=== PATIENT | female | born 1940 | race Caucasian/White ===

== ENCOUNTER 2017-01-31 12:12 | Outpatient (CLI) | payer MEDICARE, OTHER | END 2017-01-31 12:13 | disposition home or self-care (01) | DX: R31.9 Hematuria, unspecified (principal) ==

== ENCOUNTER 2017-03-16 16:47 | Outpatient (CLI) | payer MEDICARE, OTHER ==
[2017-03-16 17:24] LABS: CREATININE 0.9 mg/dL (0.4-1.0)
[2017-03-16] MEDS ORDERED: IOPAMIDOL-300 100 ML VIAL IVP ONE (19:01)
[2017-03-16] MEDS ORDERED: IOPAMIDOL-300 50 ML VIAL PO ONE (19:01)
--- NOTE | 2017-03-17 11:30 | XRAY Report ---
TWO-VIEW CHEST: 03/16/2017 CLINICAL INDICATION: Dyspnea. COMPARISON: 04/12/2013 FINDINGS: Frontal and lateral views of the chest demonstrate a normal cardiac silhouette. The lungs are hyperinflated, compatible with COPD. No focal consolidation, effusion, or pneumothorax is prese nt. IMPRESSION: HYPERINFLATION, SUGGESTIVE OF COPD. NO EVIDENCE OF ACUTE CARDIOPULMONARY DISEASE. JOB #: [id number] EXT JOB #:[id number]
--- NOTE | 2017-03-17 11:35 | CT Report ---
CT ABDOMEN AND PELVIS WITH CONTRAST: 03/16/2017 CLINICAL INDICATION: Epigastric fullness and discomfort. COMPARISON: 06/28/2015 TECHNIQUE: Axial CT images of the abdomen and pelvis were obtained with 100 mL Isovue-300 intravenou sly as well as oral contrast. In accordance with CT protocol optimization, one or more of the following dose reduction techniques w ere utilized for this exam: automated exposure control, adjustment of mA and/or KV based on patient size, or use of iterative reconstructive technique. FINDINGS: Limited evaluation of the lung bases is unremarkable. Abdomen: The liver demonstrates diffuse fatty infiltration. No focal hepatic lesion or intrahepatic biliary dilatation is present. The gallbladder is nondilated. The spleen, pancreas, kidneys, and a drenal glands are unremarkable. No bowel dilatation, free gas, or free fluid is present. No abdomin al adenopathy is present. Pelvis: The pelvic organs appear unremarkable. No pelvic adenopathy or free fluid is present. A fe w scattered sigmoid diverticula are noted, without CT evidence of diverticulitis. The appendix is se en in the right lower quadrant, and is normal in caliber. Osseous structures demonstrate degenerative changes. IMPRESSION: FATTY INFILTRATION OF THE LIVER. OTHERWISE, NORMAL CT OF THE ABDOMEN AND PELVIS WITH CO NTRAST. JOB #: [id number] EXT JOB #:[id number]
== END 2017-03-16 16:48 | disposition home or self-care (01) ==
LOC: DI 16:47
PROVIDERS: ATTEND Physician Assistant Medical
DX: K76.0 Fatty (change of) liver, not elsewhere classified (principal); R91.8 Other nonspecific abnormal finding of lung field
CPT/HCPCS: 36415; 71020; 74177; 82565; Q9967

== ENCOUNTER 2017-05-02 15:49 | Emergency (ER) | payer MEDICARE, OTHER ==
[2017-05-02 15:58] VITALS: BP 177/92
--- NOTE | 2017-05-02 16:46 | CT Preliminary Report ---
Exam: CT Head W/O IMPRESSION: Generalized age-related cortical atrophic changes without evidence of acute intracranial abnormality. [facility] SITE ID: [id number]
--- NOTE | 2017-05-02 16:49 | CT Report ---
EXAM: CT HEAD EXAM DATE: 05/02/2017 04:33 PM. CLINICAL HISTORY: Left forehead contusion dizziness. COMPARISON: CT head 12/24/2012 TECHNIQUE: Multiaxial CT images were obtained from the foramen magnum to the vertex. IV contrast: Non e. Reformats: Coronal. In accordance with CT protocol optimization, one or more of the following dose reduction techniques w ere utilized for this exam: automated exposure control, adjustment of mA and/or KV based on patient s ize, or use of iterative reconstructive technique. FINDINGS: Parenchyma: No intraparenchymal hemorrhage. No evidence of mass, midline shift, or CT findings of acu te infarction. Fong-white differentiation is distinct. Extraaxial Spaces: Normal for age. No subdural or epidural collections identified. Ventricles: The ventricles and cortical sulci are enlarged, consistent with age-related tissue loss. Sinuses: Imaged paranasal sinuses, orbits, and mastoids show no significant abnormality. Bones: No evidence of fracture or calvarial defect. Other: Diffuse chronic microangiopathic white matter changes are evident. Atherosclerosis of the intr acranial arteries. IMPRESSION: Generalized age-related cortical atrophic changes without evidence of acute intracranial abnormality. [facility] Referring Provider Line: [phone] SITE ID: [id number]
--- NOTE | 2017-05-02 16:53 | XRAY Preliminary Report ---
Exam: XR Chest 2 View PA/LAT IMPRESSION: No acute intrathoracic plain film abnormality. [facility] SITE ID: [id number]
--- NOTE | 2017-05-02 16:55 | XRAY Report ---
EXAM: CHEST RADIOGRAPHY EXAM DATE: 05/02/2017 04:40 PM. CLINICAL HISTORY: Left chest contusion . COMPARISON: 03/16/2017. TECHNIQUE: 2 views. FINDINGS: Lungs/Pleura: No focal opacities evident. No pleural effusion. No pneumothorax. Normal volumes. Mediastinum: Normal heart size. There is thoracic aortic tortuosity. Other: None. IMPRESSION: No acute intrathoracic plain film abnormality. [facility] Referring Provider Line: [phone] SITE ID: [id number]
--- NOTE | 2017-05-02 17:09 | ED Physician Documentation ---
PD HPI Fall - Stated complaint Stated Complaint: GLF - Chief complaint Chief Complaint: Neuro - History obtained from History obtained from: Patient - History of Present Illness Mechanism of injury: Tripped Fall distance: Standing position Where injury occurred: Home Timing - onset: How many days ago (4) Injury(ies) location: Head, Chest, Left Lower Extremity Quality of pain: Pain, Throbbing, Dull Associated symptoms: No: LOC, AMS, Amnesia, Seizures, Ear drainage, Nasal drainage, Neck pain, Weakness, Paresthesias, Dyspnea, Nausea / vomiting, Hematemesis, Abdominal distension Symptoms improve with: Rest Worsens with: Movement, Palpation Contributing factors: No: Anticoagulated Similar symptoms before: Has not had sx before Recently seen: Clinic (seen in the [facility] today for routine visit.) - Additional information Additional information: 76-year-old female previously well was looking at the hours on a building and tripped over a curb landing on her face and chest and left knee. She did not have loss of consciousness but she continues to have a headache a bruise above the left eye and some difficulty with balance. She has not had nausea or vomiting she has not had visual changes.Today she was in the [facility] office getting her examination and her retail management trainee asked her to come to the emergency department to be evaluated for this head injury and chest injury. The patient states that she does not feel right she has difficulty concentrating and feels off balance when she moves her head quickly. She has some pain to the left anterior chest wall without cough or congestion she also has some mild pain to the left knee but she is able to walk without difficulty and has no feeling of instability. Review of Systems Constitutional: denies: Fever Eyes: denies: Decreased vision Ears: denies: Ear pain Nose: denies: Congestion Throat: denies: Sore throat Cardiac: denies: Chest pain / pressure, Palpitations Respiratory: denies: Dyspnea, Cough GI: denies: Abdominal Pain, Nausea, Vomiting, Constipation, Diarrhea : denies: Dysuria, Frequency Skin: denies: Rash Musculoskeletal: reports: Extremity pain. denies: Neck pain, Back pain, Pain with weight bearing PD PAST MEDICAL HISTORY - Past Medical History Cardiovascular: Hypertension Respiratory: None GI: Colon polyps : Incontinence, Other HEENT: Chronic hearing loss Psych: Anxiety Musculoskeletal: Osteoporosis - Past Surgical History Past Surgical History: Yes General: Colonoscopy /[facility]: Other HEENT: Tonsil/Adenoidectomy - Present Medications Home Medications: Ambulatory Orders Medication Instructions Recorded Confirmed Medical Marijuana 10 mg PO PRN PRN 06/28/15 05/02/17 Losartan Potassium 25 mg PO DAILY 12/30/15 05/02/17 busPIRone [Buspar] 5 mg PO BID 09/13/16 05/02/17 - Allergies Allergies/Adverse Reactions: Allergies Allergy/AdvReac Type Severity Reaction Status Date / Time No Known Drug Allergies Allergy Verified 05/02/17 15:58 - Social History Does the pt smoke?: No Smoking Status: Never smoker Does the pt drink ETOH?: No Does the pt have substance abuse?: No - Immunizations Immunizations are current?: Yes Immunizations: TDAP >10years/unknown - POLST Patient has POLST: No PD ED PE NORMAL - Vitals Vital signs reviewed: Yes (Hypertensive) - General General: Alert and oriented X 3, No acute distress, Well developed/nourished - HEENT HEENT: Atraumatic, PERRL - Neck Neck: Supple, no meningeal sign - Cardiac Cardiac: RRR, No murmur - Respiratory Respiratory: No respiratory distress, Clear bilaterally, Other (There is point tenderness to the lower left anterolateral chest wall. There is no tenderness under the ribs on the abdomen.) - Abdomen Abdomen: Soft, Non tender - Back Back: No CVA TTP, No spinal TTP - Derm Derm: Normal color, Warm and dry, No rash - Extremities Extremities: No deformity, Other (On examination of the left knee the patient has some mild general tenderness there is stability of the medial and lateral collateral ligaments and the distal neurovascular components are intact. The knee runs were range of motion easily.) - Neuro Neuro: Alert and oriented X 3, covering machine operator 2-12 intact, No motor deficit, No sensory deficit, Normal speech - Psych Psych: Normal mood, Normal affect Results - Vitals Vitals: Vital Signs - 24 hr 05/02/17 15:56 Temperature 36.1 C L Heart Rate 69 Respiratory 18 Rate Blood Pressure 177/92 H O2 Saturation 98 Oxygen O2 Source Room air - Rads (name of study) CT head without Radiology: Prelim report reviewed (Impression: Generalized age-related cortical atrophic changes without evidence of acute intracranial abnormality.), EMP read indepedently, See rad report 2 view chest Radiology: Prelim report reviewed (Impression: No acute intrathoracic plain film abnormality.), EMP read indepedently, See rad report PD MEDICAL DECISION MAKING - ED course Complexity details: reviewed results, re-evaluated patient, considered differential, d/w patient ED course: 76-year-old female with a history of hypertension and anxiety and depression has had a fall and has had a concussion she still has postconcussive syndrome consisting of headache difficulty concentrating and being off balance. CT of the head was negative she has been counseled that she may have postconcussive syndrome for some time and to avoid situations where she may injure herself again including bending and stooping that she is getting dizzy when she does this now.She has been counseled that she may have symptoms for 2-3 weeks and that she may have some increased pain on her chest wall over the next 1-2 days. Departure - Departure Disposition: 01 Home, Self Care Clinical Impression: Concussion Qualifiers: Encounter type: initial encounter Loss of consciousness presence/duration: without LOC Qualified Code(s): S06.0X0A - Concussion without loss of consciousness, initial encounter Chest wall contusion Qualifiers: Encounter type: initial encounter Laterality: left Qualified Code(s): S20.212A - Contusion of left front wall of thorax, initial encounter Knee contusion Qualifiers: Encounter type: initial encounter Laterality: left Qualified Code(s): S80.02XA - Contusion of left knee, initial encounter Condition: Stable Instructions: ED Contusion Vs Minor Fx Rib, ED Sprain Knee, ED Concussion Follow-Up: Isabell Anne PA-C [Primary Care Provider] -
== END 2017-05-02 17:32 | disposition home or self-care (01) ==
LOC: ED 15:49
DX: S06.0X0A Concussion without loss of consciousness, initial encounter (principal); S20.212A Contusion of left front wall of thorax, initial encounter; S80.02XA Contusion of left knee, initial encounter; S00.83XA Contusion of other part of head, initial encounter; W01.0XXA Fall on same level from slipping, tripping and stumbling without subsequent striking against object, initial encounter; Y92.480 Sidewalk as the place of occurrence of the external cause; I10 Essential (primary) hypertension
CPT/HCPCS: 70450; 71020; 99283; 99284

== ENCOUNTER 2017-05-04 16:50 | Outpatient (CLI) | payer MEDICARE, OTHER ==
--- NOTE | 2017-05-04 17:29 | XRAY Preliminary Report ---
Exam: XR Chest 2 View PA/LAT IMPRESSION: Normal 2-view chest radiography. [facility] SITE ID: [id number]
--- NOTE | 2017-05-04 17:43 | XRAY Report ---
EXAM: CHEST RADIOGRAPHY EXAM DATE: 05/04/2017 05:11 PM. CLINICAL HISTORY: Wheeze, left chest pain x 2 days, fall, left chest contusion. COMPARISON: 05/02/2017. TECHNIQUE: 2 views. FINDINGS: Lungs/Pleura: No focal opacities evident. No pleural effusion. No pneumothorax. Normal volumes. Mediastinum: Heart and mediastinal contours are unremarkable. Other: None. IMPRESSION: Normal 2-view chest radiography. [facility] Referring Provider Line: [phone] SITE ID: [id number]
== END 2017-05-04 16:51 | disposition home or self-care (01) ==
LOC: DI 16:50
PROVIDERS: ATTEND Physician Assistant Medical
DX: R07.89 Other chest pain (principal); S20.219A Contusion of unspecified front wall of thorax, initial encounter
CPT/HCPCS: 71020

== ENCOUNTER 2017-11-03 15:23 | Outpatient (CLI) | payer MEDICARE, OTHER ==
[2017-11-03 15:52] LABS: BASOPHILS # (AUTO) 0.1 10^3/uL (0.0-0.1); BASOPHILS % (AUTO) 1.4 %; EOSINOPHILS # (AUTO) 0.2 10^3/uL (0.0-0.7); EOSINOPHILS % (AUTO) 2.1 %; HGB - HEMOGLOBIN 13.6 g/dL (12.0-16.0); LYMPHOCYTES % (AUTO) 28.6 %; MEAN CORPUSCULAR HEMOGLOBIN 29.1 pg (27.0-31.0); MEAN CORPUSCULAR HGB CONC 33.6 g/dL (32.0-36.0); MEAN CORPUSCULAR VOLUME 86.6 fL (81.0-99.0); MEAN PLATELET VOLUME 7.5 fL (7.9-10.8); MONOCYTES # (AUTO) 0.3 10^3/uL (0.0-1.0); MONOCYTES % (AUTO) 4.7 %; NEUTROPHILS # (AUTO) 4.5 10^3/uL (1.5-6.6); NEUTROPHILS % (AUTO) 63.2 %; PLT - PLATELET COUNT 247 10^3/uL (130-450); RED BLOOD COUNT 4.69 10^6/uL (4.20-5.40); RED CELL DISTRIBUTION WIDTH 13.2 % (12.0-15.0); WHITE BLOOD COUNT 7.1 x10^3/uL (4.8-10.8)
[2017-11-03 16:12] LABS: ALBUMIN 3.7 g/dL (3.2-5.5); ALBUMIN/GLOBULIN RATIO 1.1 (1.0-2.2); ALKALINE PHOSPHATASE 65 IU/L (42-121); ALT ALANINE AMINOTRANSFERASE 36 IU/L (10-60); AST ASPARTATE AMINOTRANSFERASE 27 IU/L (10-42); BILIRUBIN,TOTAL 0.7 mg/dL (0.2-1.0); BUN - BLOOD UREA NITROGEN 23 mg/dL (6-20); CALCIUM 9.4 mg/dL (8.5-10.3); CARBON DIOXIDE - CO2 26 mmol/L (21-32); CHLORIDE 102 mmol/L (101-111); CHOL/HDL RATIO 4.3 (<4.4); CHOLESTEROL 210 mg/dL; CREATININE 0.9 mg/dL (0.4-1.0); GFR - MDRD 61 (>89); GLUCOSE 92 mg/dL (70-100); HDL CHOLESTEROL 49 mg/dL; LDL CHOLESTEROL,CALCULATED 147 mg/dL; SODIUM 139 mmol/L (135-145); VLDL CHOLESTEROL 14 mg/dL
== END 2017-11-03 15:24 | disposition home or self-care (01) ==
LOC: LAB 15:23
PROVIDERS: ATTEND Physician Assistant Medical
DX: M81.0 Age-related osteoporosis without current pathological fracture (principal); Z79.899 Other long term (current) drug therapy; I10 Essential (primary) hypertension; F41.8 Other specified anxiety disorders; E78.5 Hyperlipidemia, unspecified
CPT/HCPCS: 36415; 80053; 80061; 82306; 84443; 85025

== ENCOUNTER 2017-12-19 08:24 | Outpatient (CLI) | payer MEDICARE, OTHER ==
[~2017-12-19 08:24] MED LIST: GADOBUTROL 7.5 MMOL/7.5 ML VIAL ONE
[2017-12-19 08:41] LABS: CREATININE 0.9 mg/dL (0.4-1.0)
[2017-12-19] MEDS ORDERED: GADOBUTROL 7.5 MMOL/7.5 ML VIAL IVP ONE (10:33)
--- NOTE | 2017-12-19 12:54 | MRI Report ---
EXAM: MRI BRAIN WITHOUT AND WITH CONTRAST EXAM DATE: 12/19/2017 10:47 AM. CLINICAL HISTORY: 77-year-old woman with memory loss and tinnitus. COMPARISON: MRI on 03/19/2007. TECHNIQUE: Multiplanar, multisequence T1-weighted and fluid-sensitive MR sequences of the brain were performed. Sequences optimized for routine evaluation. Other: High-resolution excess images were acqu ired through the internal auditory canals. IV Contrast: 6.5 cc Gadavist. FINDINGS: Parenchyma: No evidence of acute infarct on diffusion weighted sequence. Lot parenchyma demonstrates mild to moderate burden of FLAIR hyperintensities in the deep cerebral and periventricular white cierra er, progressed compared to the 2006 exam but most consistent with sequelae of chronic small vessel is chemic disease, a common finding in this age group. No abnormal enhancement. Pituitary: Unremarkable. Ventricles and Extra-axial Spaces: Ventricles are symmetric and normal in size for age. Extra-axial s paces are unremarkable. No abnormal enhancement. Internal Auditory Canals: Patent without mass lesion or abnormal enhancement bilaterally. Cochleas an d vestibular apparatuses demonstrate normal fluid signal intensity without abnormal enhancement. Orbits: Unremarkable. Sinuses: Paranasal sinuses and mastoid air cells are clear. Major Vascular Flow Voids: Intact. Dural Venous Sinuses and Major Central Veins: Patent on post-contrast images. No evidence of jugular diverticulum or high riding jugular bulb. IMPRESSION: 1. No acute intracranial abnormality. Specifically, no evidence of acute infarct, hemorrhage, or mass lesion. 2. Mild to moderate white matter changes, regressed compared to the 03/19/2007 MRI but most consisten t with sequelae of chronic small vessel ischemic disease, a common finding in this age group. [facility] Referring Provider Line: [phone] SITE ID: [id number]
--- NOTE | 2017-12-20 16:03 | DEXA Report ---
DEXA: 12/19/2017 CLINICAL INDICATION: Osteoporosis. TECHNIQUE: Dual energy x-ray absorptiometry (DXA) was performed on a [employer] system. Regions measured are the AP spine, femoral neck, and, if needed, forearm. COMPARISON: None. In accordance with the International Society for Clinical Densitometry (ISCD) guidelines, data from previous exams may be reanalyzed using current recommendations and techniques. This is done to allow a more accurate basis for comparison with the current study. FINDINGS: The data for the lumbar spine is as follows: REGION BMD (g/cm/cm) T-SCORE Z-SCORE L1 0.783 -2.9 -1.1 L2 0.753 -3.7 -1.9 L3 0.885 -2.6 -0.9 L4 0.876 -2.7 -0.9 TOTAL 0.831 -2.9 -1.1 NOTE: All evaluable vertebrae are used for classification. The data for the hip is as follows: REGION BMD (g/cm/cm) T-SCORE Z-SCORE Neck 0.706 -2.4 -0.4 TOTAL 0.686 -2.6 -0.7 NOTE: The femoral neck or total proximal femur, whichever is lowest, is used for classification. IMPRESSION: THE WHO CLASSIFICATION BASED ON THE INTERNATIONAL REFERENCE STANDARD IS OSTEOPOROSIS. THE FRACTURE RISK IS HIGH. RECOMMENDATION: Patients with diagnosis of osteoporosis or osteopenia should have regular bone mineral density assessment. For those eligible for Medicare, routine testing is allowed once every 2 years. Testing frequency can be increased for patients who have rapidly progressing disease or for those who are receiving medical therapy to restore bone mass. COMMENT: World Health Organization (WHO) definitions for osteoporosis and osteopenia: NORMAL BMD: T-score at 1.0 or higher, fracture risk is low. OSTEOPENIA BMD: T-score between 1.0 and -2.5, fracture risk is increased. OSTEOPOROSIS BMD: T-score at 2.5 or lower, fracture risk high. National Osteoporosis Foundation recommends: 1. Obtain adequate dietary calcium (at least 1200 mg per day) and vitamin D (400 -800 international units per day). 2. Participate, as appropriate, in regular weightbearing and muscle- strengthening exercise. 3. Avoid tobacco use and reduce alcohol and caffeine intake. 4. For more detailed information see the website at www.NOF.org. TD: 12/19/2017 17:29 [place]
== END 2017-12-19 08:25 | disposition home or self-care (01) ==
LOC: LAB 08:24
PROVIDERS: ATTEND Physician Assistant Medical
DX: Z79.899 Other long term (current) drug therapy (principal); M81.0 Age-related osteoporosis without current pathological fracture; H93.19 Tinnitus, unspecified ear; R41.3 Other amnesia
CPT/HCPCS: 36415; 70553; 77080; 82565; 84520; A9585

== ENCOUNTER 2017-12-19 08:30 | Outpatient (CLI) | payer MEDICARE, OTHER ==
--- NOTE | 2017-12-20 13:39 | Mammography Report ---
DIGITAL SCREENING MAMMOGRAM: 12/19/2017 CLINICAL INDICATION: A 77-year-old with history of late childbearing, personal history of benign left breast biopsies, family history of breast cancer, for screening. COMPARISON: 08/2015, 05/2014, 02/2013, 01/2012, 09/2010. TECHNIQUE: Routine CC and MLO projections were obtained of the breasts. FINDINGS: The breasts again demonstrate heterogeneously dense fibroglandular parenchyma bilaterally. Postoperative changes in the left breast are stable. Punctate, typically benign calcifications are present. No suspicious masses, clustered microcalcifications, or regions of architectural distortion are identified. IMPRESSION: BENIGN FINDINGS. RECOMMENDATION: ROUTINE ANNUAL SCREENING UNLESS OTHERWISE CLINICALLY INDICATED. BIRADS CATEGORY 2-BENIGN FINDINGS. STANDARD QUALIFYING STATEMENTS: 1. This examination was reviewed with the aid of Computer-Aided Detection (CAD). 2. A negative or benign imaging report should not delay biopsy if clinically suspicious findings are present. Consider surgical consultation if warranted. More than 5% of cancers are not identified by imaging. 3. Dense breasts may obscure an underlying neoplasm. TD: 12/20/2017 13:37
== END 2017-12-19 08:31 | disposition home or self-care (01) ==
LOC: DI 08:30
PROVIDERS: ATTEND Physician Assistant Medical
DX: Z12.31 Encounter for screening mammogram for malignant neoplasm of breast (principal); Z80.3 Family history of malignant neoplasm of breast
CPT/HCPCS: 77067

== ENCOUNTER 2018-08-23 19:14 | Outpatient (CLI) | payer MEDICARE, OTHER ==
--- NOTE | 2018-08-25 22:18 | XRAY Report ---
Reason: LUMBAR RADICULOPATHY, RIGHT Procedure Date: 08/23/2018 Accession Number: [id number] / [id number] Procedure: XR - Lumbar Spine Complete CPT Code: FULL RESULT: EXAM: LUMBOSACRAL SPINE RADIOGRAPHY EXAM DATE: 08/23/2018 07:44 PM. CLINICAL HISTORY: Lumbar radiculopathy, right. COMPARISONS: XR LUMBOSACRAL SPINE 4 VIEWS 03/06/2007 11:05 AM. TECHNIQUE: AP, lateral, bilateral oblique, lumbosacral views. FINDINGS: Alignment: 3 mm of L1 on L2 retrolisthesis and 5 mm of L4 on L5 anterolisthesis likely degenerative in origin. Gentle convex to the left curvature of the mid lumbar spine. Bones: Five [id number] lumbar vertebral bodies are present. Osteopenic patient. No fracture or bone lesions. Disks: Multilevel degenerative disk disease most severe at L4-L5. Facets: Multilevel facet arthropathy most severe at L5-S1 and L4-L5. Sacroiliac Joints: Bilateral right greater than left SI joint sclerosis is noted. Bilateral hips: Moderate left and mild to moderate right hip joint space narrowing. Normal alignment. Soft Tissues: Normal. The visualized bowel gas pattern is normal. IMPRESSION: 1. No fracture. 2. Multilevel degenerative disk and facet arthropathy. See above. 3. Bilateral SI joint and hip arthritis. See above. [facility]
== END 2018-08-23 19:15 | disposition home or self-care (01) ==
LOC: DI 19:14
PROVIDERS: ATTEND Physician Assistant Medical
DX: M51.16 Intervertebral disc disorders with radiculopathy, lumbar region (principal); M46.98 Unspecified inflammatory spondylopathy, sacral and sacrococcygeal region; M16.0 Bilateral primary osteoarthritis of hip
CPT/HCPCS: 72110

== ENCOUNTER 2018-09-25 10:25 | Outpatient (CLI) | payer MEDICARE, OTHER ==
[2018-09-25 10:48] LABS: BASOPHILS # (AUTO) 0.1 10^3/uL (0.0-0.1); BASOPHILS % (AUTO) 1.2 %; EOSINOPHILS # (AUTO) 0.2 10^3/uL (0.0-0.7); EOSINOPHILS % (AUTO) 2.7 %; HGB - HEMOGLOBIN 14.4 g/dL (12.0-16.0); LYMPHOCYTES # (AUTO) 1.9 10^3/uL (1.5-3.5); LYMPHOCYTES % (AUTO) 33.2 %; MEAN CORPUSCULAR HEMOGLOBIN 29.8 pg (27.0-31.0); MEAN CORPUSCULAR HGB CONC 34.2 g/dL (32.0-36.0); MEAN CORPUSCULAR VOLUME 87.2 fL (81.0-99.0); MEAN PLATELET VOLUME 7.3 fL (7.9-10.8); MONOCYTES # (AUTO) 0.4 10^3/uL (0.0-1.0); NEUTROPHILS # (AUTO) 3.2 10^3/uL (1.5-6.6); NEUTROPHILS % (AUTO) 55.9 %; PLT - PLATELET COUNT 254 10^3/uL (130-450); RED BLOOD COUNT 4.83 10^6/uL (4.20-5.40); RED CELL DISTRIBUTION WIDTH 13.5 % (12.0-15.0); WHITE BLOOD COUNT 5.7 x10^3/uL (4.8-10.8)
[2018-09-25 11:03] LABS: ALBUMIN/GLOBULIN RATIO 1.3 (1.0-2.2); BILIRUBIN,TOTAL 0.7 mg/dL (0.2-1.0); CREATININE 0.8 mg/dL (0.4-1.0); TOTAL PROTEIN 7.1 g/dL (6.7-8.2)
== END 2018-09-25 10:26 | disposition home or self-care (01) ==
LOC: LAB 10:25
PROVIDERS: ATTEND Internal Medicine
DX: R07.9 Chest pain, unspecified (principal)
CPT/HCPCS: 36415; 80053; 84484; 85025

== ENCOUNTER 2018-11-08 11:47 | Outpatient (CLI) | payer MEDICARE, OTHER ==
[2018-11-08 12:44] LABS: CHOLESTEROL 203 mg/dL; HDL CHOLESTEROL 41 mg/dL; LDL CHOLESTEROL,CALCULATED 141 mg/dL; LDL/HDL RATIO 3.4 (<4.4); VLDL CHOLESTEROL 21 mg/dL
== END 2018-11-08 11:48 | disposition home or self-care (01) ==
LOC: LAB 11:47
PROVIDERS: ATTEND Physician Assistant Medical
DX: M81.0 Age-related osteoporosis without current pathological fracture (principal); Z79.899 Other long term (current) drug therapy; E78.2 Mixed hyperlipidemia; I10 Essential (primary) hypertension
CPT/HCPCS: 36415; 80061; 82306; 83721; 84443

== ENCOUNTER 2018-11-14 08:00 | Outpatient (CLI) | payer MEDICARE, OTHER ==
[2018-11-14 17:49] LABS: BILIRUBIN,URINE NEGATIVE (NEGATIVE); GLUCOSE, URINE (UA) NEGATIVE (NEGATIVE); KETONES,URINE (UA) NEGATIVE (NEGATIVE); LEUKOCYTE ESTERASE, URINE SMALL (NEGATIVE); NITRITE,URINE NEGATIVE (NEGATIVE); OCCULT BLOOD,URINE NEGATIVE (NEGATIVE); PH,URINE 5.5 PH (5.0-7.5); PROTEIN,URINE NEGATIVE (NEGATIVE); UROBILINOGEN,URINE 0.2 (NORMAL) E.U./dL (NORMAL)
[2018-11-14 17:50] LABS: CLARITY,URINE CLEAR (CLEAR)
[2018-11-14 18:03] LABS: BACTERIA,URINE None Seen /HPF (None Seen); RBC,URINE 0-5 /HPF (0-5); SQUAMOUS EPITHELIAL CELL,UR MOD Squamous (<= Few)
== END 2018-11-14 23:59 | disposition home or self-care (01) ==
LOC: LAB.R 08:00
PROVIDERS: ATTEND Physician Assistant Medical
DX: N39.0 Urinary tract infection, site not specified (principal)
CPT/HCPCS: 81001; 81003; 87086

== ENCOUNTER 2019-08-30 14:08 | Outpatient (CLI) | payer MEDICARE, OTHER ==
[2019-08-30 15:50] LABS: ALBUMIN 3.8 g/dL (3.2-5.5); ALBUMIN/GLOBULIN RATIO 1.1 (1.0-2.2); BILIRUBIN,TOTAL 0.7 mg/dL (0.2-1.0); CALCIUM 9.3 mg/dL (8.5-10.3); CREATININE 0.9 mg/dL (0.4-1.0); TOTAL PROTEIN 7.2 g/dL (6.7-8.2)
--- NOTE | 2019-08-30 15:56 | Ultrasound Report ---
Reason: ANKLE JOINT PAIN RT Procedure Date: 08/30/2019 Accession Number: [id number] / [id number] Procedure: US - Duplex Ext Veins Right CPT Code: FULL RESULT: EXAM: RIGHT LOWER EXTREMITY VENOUS ULTRASOUND EXAM DATE: 08/30/2019 02:48 PM. CLINICAL HISTORY: ANKLE JOINT PAIN RT. COMPARISON: None. TECHNIQUE: Real-time sonographic vascular imaging was performed by the safety person through the lower extremity utilizing both color-flow and Doppler spectral analysis. Multiple sales training representative static images were saved for review. FINDINGS: Common Femoral Vein (CFV): Normal. CFV-GSV Junction: Normal. Profunda Femoral Vein (PFV): Normal. Femoral Vein (FV) Prox: Normal. Femoral Vein (FV) Mid: Normal. Femoral Vein (FV) Dist: Normal. Popliteal Vein: Normal. Posterior Tibial Veins: Normal. Peroneal Veins: Normal. Other: None. IMPRESSION: No evidence for deep venous thrombosis. [facility]
[2019-08-30 15:57] LABS: CREATINE KINASE MB 2.6 ng/mL (0.6-6.3)
== END 2019-08-30 14:09 | disposition home or self-care (01) ==
LOC: LAB 14:08
PROVIDERS: ATTEND Nurse Practitioner
DX: I49.9 Cardiac arrhythmia, unspecified (principal); I10 Essential (primary) hypertension; M25.571 Pain in right ankle and joints of right foot
CPT/HCPCS: 36415; 80053; 82553; 84443; 84484; 85379

== ENCOUNTER 2020-01-16 08:38 | Outpatient (CLI) | payer MEDICARE, OTHER ==
--- NOTE | 2020-01-17 10:24 | DEXA Report ---
Reason: OSTEOPOROSIS Procedure Date: 01/16/2020 Accession Number: [id number] / [id number] Procedure: DEX - Dexa Spine and/or Hip CPT Code: Final Report FULL RESULT: EXAM: Dexa Spine and/or Hip DATE: 01/16/2020 9:10 AM CLINICAL HISTORY: OSTEOPOROSIS TECHNIQUE: Dual energy x-ray absorptiometry (DXA) was performed on a [employer] System. Regions measured are the AP Spine, femoral neck, and if needed forearm. COMPARISON: 12/19/2017. In accordance with the International Society for Clinical Densitometry (ISCD) guidelines, data from previous exams may be reanalyzed using current recommendations and techniques. This is done to allow a more accurate basis for comparison with the current study. FINDINGS: The data for the lumbar spine is as follows: BMD (g/cm/cm) T-SCORE Z-SCORE REGION L1 0.836 -2.4 -0.6 L2 0.878 -2.7 -0.9 L3 0.926 -2.3 -0.5 L4 0.895 -2.5 -0.7 TOTAL 0.887 -2.4 -0.6 NOTE: All evaluable vertebrae are used for classification The data for the hip is as follows: BMD (g/cm/cm) T-SCORE Z-SCORE REGION Neck 0.676 -2.6 -0.5 TOTAL 0.694 -2.5 -0.5 NOTE: The femoral neck or total proximal femur, whichever is lowest, is used for classification. DXA RESULTS SUMMARY: Spine SCAN DATE AGE BMD CHANGE VS CHANGE VS PREVIOUS PREVIOUS % 01[age]16/2020 [age] 0.887 0.056* 6.7* 12[age]19/2017 [age] 0[age]831 * Denotes significant change at the 95% confidence level. Denotes dissimilar scan types or analysis methods. DXA RESULTS SUMMARY: Hip SCAN DATE AGE BMD CHANGE VS CHANGE VS PREVIOUS PREVIOUS % 01[age]16/2020 [age] 0.694 0.008 1.2 12[age]19/2017 [age] 0.686 * Denotes significant change at the 95% confidence level. Denotes dissimilar scan types or analysis methods. IMPRESSION: THE WHO CLASSIFICATION BASED ON THE INTERNATIONAL REFERENCE STANDARD IS OSTEOPOROSIS. THE FRACTURE RISK IS HIGH. Please note that interval decrease in bone density in the spine is statistically significant. RECOMMENDATION: Patients with diagnosis of osteoporosis or osteopenia should have regular bone mineral density assessment. For those eligible for Medicare, routine testing is allowed once every 2 years. Testing frequency can be increased for patients who have rapidly progressing disease or for those who are receiving medical therapy to restore bone mass. COMMENT: World Health Organization (WHO) definitions for osteoporosis and osteopenia: NORMAL BMD: T-score at -1.0 or higher, fracture risk is low OSTEOPENIA BMD: T-score between -1.0 and -2.5, fracture risk is increased. OSTEOPOROSIS BMD: T-score at -2.5 or lower, fracture risk is high. National Osteoporosis Foundation recommends: 1. Obtain adequate dietary calcium (at least 1200 mg per day) and vitamin D (400-800 international units per day). 2. Participate, as appropriate, in regular weightbearing and muscle-strengthening exercise. 3. Avoid tobacco use and reduce alcohol and caffeine intake. 4. For more detailed information see the website at www.NOF.org.
== END 2020-01-16 08:39 | disposition home or self-care (01) ==
LOC: DI 08:38
PROVIDERS: ATTEND Family Medicine
DX: M81.0 Age-related osteoporosis without current pathological fracture (principal)
CPT/HCPCS: 77080

== ENCOUNTER 2020-08-15 14:18 | Outpatient (CLI) | payer MEDICARE, OTHER ==
[2020-08-15 14:48] LABS: BASOPHILS # (AUTO) 0.1 10^3/uL (0.0-0.1); BASOPHILS % (AUTO) 0.9 %; EOSINOPHILS # (AUTO) 0.1 10^3/uL (0.0-0.7); EOSINOPHILS % (AUTO) 2.5 %; HGB - HEMOGLOBIN 12.9 g/dL (12.0-16.0); LYMPHOCYTES # (AUTO) 1.9 10^3/uL (1.5-3.5); LYMPHOCYTES % (AUTO) 34.4 %; MEAN CORPUSCULAR HEMOGLOBIN 30.1 pg (27.0-31.0); MEAN CORPUSCULAR VOLUME 91.1 fL (81.0-99.0); MEAN PLATELET VOLUME 9.7 fL (7.9-10.8); MONOCYTES # (AUTO) 0.4 10^3/uL (0.0-1.0); MONOCYTES % (AUTO) 7.6 %; NEUTROPHILS % (AUTO) 54.4 %; PLT - PLATELET COUNT 214 10^3/uL (130-450); RED BLOOD COUNT 4.29 10^6/uL (4.20-5.40); RED CELL DISTRIBUTION WIDTH 12.8 % (12.0-15.0); WHITE BLOOD COUNT 5.5 x10^3/uL (4.8-10.8)
[2020-08-15 15:00] LABS: ALBUMIN 3.7 g/dL (3.2-5.5); ALBUMIN/GLOBULIN RATIO 1.2 (1.0-2.2); ALKALINE PHOSPHATASE 63 IU/L (42-121); ALT ALANINE AMINOTRANSFERASE 26 IU/L (10-60); AST ASPARTATE AMINOTRANSFERASE 23 IU/L (10-42); BILIRUBIN,TOTAL 0.6 mg/dL (0.2-1.0); BUN - BLOOD UREA NITROGEN 23 mg/dL (6-20); CALCIUM 9.3 mg/dL (8.5-10.3); CARBON DIOXIDE - CO2 26 mmol/L (21-32); CHLORIDE 108 mmol/L (101-111); CHOL/HDL RATIO 3.8 (<4.4); CHOLESTEROL 168 mg/dL; GLUCOSE 97 mg/dL (70-100); HDL CHOLESTEROL 44 mg/dL; LDL CHOLESTEROL,CALCULATED 106 mg/dL; LDL/HDL RATIO 2.4 (<4.4); SODIUM 140 mmol/L (135-145); TOTAL PROTEIN 6.7 g/dL (6.7-8.2); VLDL CHOLESTEROL 18 mg/dL
== END 2020-08-15 14:19 | disposition home or self-care (01) ==
LOC: LAB 14:18
PROVIDERS: ATTEND Family Medicine
DX: I12.9 Hypertensive chronic kidney disease with stage 1 through stage 4 chronic kidney disease, or unspecified chronic kidney disease (principal); N18.9 Chronic kidney disease, unspecified; E78.2 Mixed hyperlipidemia; F32.9 Major depressive disorder, single episode, unspecified; F41.9 Anxiety disorder, unspecified
CPT/HCPCS: 36415; 80053; 80061; 83721; 84443; 85025

== ENCOUNTER 2020-10-09 18:35 | Outpatient (CLI) | payer MEDICARE, OTHER ==
--- NOTE | 2020-10-09 22:15 | Ultrasound Report ---
PROCEDURE: Duplex Ext Veins Bilateral INDICATIONS: TYRONE MACK TECHNIQUE: Real-time imaging, as well as color and pulse Doppler interrogation, were performed of the deep veins of both legs from the inguinal ligament to the popliteal fossa. COMPARISON: Venous Doppler ultrasound right lower extremity, 08/30/2019. Venous Doppler ultrasound l eft lower extremity, 10/06/2015. FINDINGS: The deep veins are normally compressible, and free of intraluminal thrombus. Color and pu lse Doppler demonstrate normal phasic intravascular flow. There is normal augmentation response to d istal compression maneuver. There is a 1.9 x 0.2 x 0.9 cm fluid collection in the left mid nicole. IMPRESSION: 1. No DVT in the lower extremity. 2. A 1.9 x 0.2 x 0.9 cm fluid collection in the left mid nicole, probably a small seroma. Less likely, this could present a small hematoma or abscess. Recommend clinical correlation and follow-up. Reviewed by: Bonnie Perez MD on 10/09/2020 10:14 PM PST Approved by: Bonnie Perez MD on 10/09/2020 10:14 PM PST Station ID: [id number]
== END 2020-10-09 18:36 | disposition home or self-care (01) ==
LOC: DI 18:35
PROVIDERS: ATTEND Family Medicine
DX: R93.6 Abnormal findings on diagnostic imaging of limbs (principal)
CPT/HCPCS: 93970

== ENCOUNTER 2021-06-11 13:51 | Outpatient (CLI) | payer MEDICARE, OTHER | END 2021-06-11 13:52 | disposition EMS.NT | LOC: EMS 13:51 | DX: R10.9 Unspecified abdominal pain (principal) ==

== ENCOUNTER 2021-06-11 14:43 | Emergency (ER) | payer MEDICARE, OTHER ==
[2021-06-11] MEDS ORDERED: SODIUM CHLORIDE 0.9% 1,000 ML IV STA (15:03)
[2021-06-11] MEDS ORDERED: HYDROmorphone 1 MG/ML CARPUJECT IVP STA (15:03)
[2021-06-11 15:09] LABS: BASOPHILS % (AUTO) 0.5 %; EOSINOPHILS # (AUTO) 0.1 10^3/uL (0.0-0.7); EOSINOPHILS % (AUTO) 1.3 %; HCT - HEMATOCRIT 40.5 % (37.0-47.0); HGB - HEMOGLOBIN 13.5 g/dL (12.0-16.0); LYMPHOCYTES # (AUTO) 1.6 10^3/uL (1.5-3.5); LYMPHOCYTES % (AUTO) 19.9 %; MEAN CORPUSCULAR HEMOGLOBIN 29.5 pg (27.0-31.0); MEAN CORPUSCULAR HGB CONC 33.3 g/dL (32.0-36.0); MEAN CORPUSCULAR VOLUME 88.4 fL (81.0-99.0); MEAN PLATELET VOLUME 9.1 fL (7.9-10.8); MONOCYTES # (AUTO) 0.6 10^3/uL (0.0-1.0); MONOCYTES % (AUTO) 6.7 %; NEUTROPHILS # (AUTO) 5.9 10^3/uL (1.5-6.6); NEUTROPHILS % (AUTO) 71.4 %; PLT - PLATELET COUNT 243 10^3/uL (130-450); RED BLOOD COUNT 4.58 10^6/uL (4.20-5.40); RED CELL DISTRIBUTION WIDTH 12.3 % (12.0-15.0); WHITE BLOOD COUNT 8.3 x10^3/uL (4.8-10.8)
[2021-06-11] MEDS ORDERED: IOPAMIDOL-300 100 ML VIAL ONE (15:17)
[2021-06-11 15:23] LABS: ALBUMIN 3.8 g/dL (3.2-5.5); ALBUMIN/GLOBULIN RATIO 1.2 (1.0-2.2); BILIRUBIN,TOTAL 0.6 mg/dL (0.2-1.0); CALCIUM 9.2 mg/dL (8.5-10.3); CREATININE 0.7 mg/dL (0.4-1.0); POTASSIUM 3.6 mmol/L (3.5-5.0)
[2021-06-11 15:36] LABS: BILIRUBIN,URINE NEGATIVE (NEGATIVE); GLUCOSE, URINE (UA) NEGATIVE (NEGATIVE); KETONES,URINE (UA) NEGATIVE (NEGATIVE); LEUKOCYTE ESTERASE, URINE NEGATIVE (NEGATIVE); NITRITE,URINE NEGATIVE (NEGATIVE); OCCULT BLOOD,URINE NEGATIVE (NEGATIVE); PROTEIN,URINE NEGATIVE (NEGATIVE); UROBILINOGEN,URINE 0.2 (NORMAL) E.U./dL (NORMAL)
[2021-06-11 15:37] LABS: CLARITY,URINE CLEAR (CLEAR)
[2021-06-11] MEDS ORDERED: IOPAMIDOL-300 100 ML VIAL IVP ONE (16:35)
--- NOTE | 2021-06-11 16:44 | CT Report ---
PROCEDURE: Abdomen/Pelvis W INDICATIONS: RLQ abd pain CONTRAST: IV CONTRAST: Isovue 300 ml: 100 PO CONTRAST: *NO PO CONTRAST TECHNIQUE: After the administration of intravenous contrast, 5 mm thick sections acquired from the diaphragms to the symphysis. 5 mm thick coronal and sagittal reformats were acquired. For radiation dose reducti on, the following was used: automated exposure control, adjustment of mA and/or kV according to bhavya ent size. COMPARISON: 03/16/2017 FINDINGS: Image quality: Excellent. ABDOMEN: Lung bases: Lung bases are clear. Heart size is normal. Solid organs: Liver and spleen are normal in size and enhancement. Hepatic steatosis, as before. Ga llbladder is unremarkable. Biliary system is non dilated. Pancreas enhances normally. No adrenal n odules. There is a 1 cm enhancing mass involving the middle pole of the right kidney. It is exophytic . It is likely a very small, incidental renal cell carcinoma. Reference image 30/3. Kidneys otherwise demonstrate normal size and enhancement, without hydronephrosis. Peritoneum and bowel: Bowel loops demonstrate normal wall thickness and caliber. No free fluid or a ir. Moderately large right colonic fecal debris. The appendix is not identified. No secondary signs of acute appendicitis in the right lower quadrant. Nodes and vessels: No retroperitoneal or mesenteric adenopathy by size criteria. Aorta and inferior vena cava are normal in size. Miscellaneous: No ventral hernias. PELVIS: Genitourinary: Bladder wall thickness is normal. Miscellaneous: No inguinal hernias or adenopathy. Bones: No suspicious bony lesions. No vertebral body compression fractures. Lumbar degenerative ch radha. Canal stenosis at L4-L5. IMPRESSION: 1. No evidence acute abdominal process. No findings suspicious for acute appendicitis. Appendix not v isualized. 2. Moderately large right colonic fecal debris. 3. Hepatic steatosis. 4. 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 Reviewed by: Regino Howard MD on 06/11/2021 4:42 PM PDT Approved by: Regino Howard MD on 06/11/2021 4:42 PM PDT Station ID: [id number]
--- NOTE | 2021-06-11 17:18 | ED Physician Documentation ---
History of Present Illness - Stated complaint Stated Complaint: R SIDE PX - Chief complaint Chief Complaint: Abd Pain - Additonal information Additional information: 80-year-old female presents emergency department for evaluation of acute onset right-sided abdominal pain. She began to feel that intermittently this week but this afternoon it dropped her suddenly to her knees. She reports feeling generally bloated over the last few months and not very well feeling. She is scheduled to have a colonoscopy on Monday upcoming. There have been no fevers or dysuria. No urinary urgency or frequency. She denies any past surgical history. Review of Systems Constitutional: reports: Fatigue. denies: Fever, Chills Eyes: reports: Reviewed and negative Ears: reports: Reviewed and negative Throat: reports: Reviewed and negative Cardiac: reports: Reviewed and negative Respiratory: reports: Reviewed and negative GI: reports: Abdominal Pain, Nausea, Other (Bloating). 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 HEENT: Tonsil/Adenoidectomy - Present Medications Home Medications: Ambulatory Orders Medication Instructions Recorded Confirmed Medical Marijuana 10 mg PO PRN PRN 06/28/15 05/02/17 Losartan Potassium 25 mg PO DAILY 12/30/15 05/02/17 busPIRone [Buspar] 5 mg PO BID 09/13/16 05/02/17 - Allergies Allergies/Adverse Reactions: Allergies Allergy/AdvReac Type Severity Reaction Status Date / Time No Known Drug Allergies Allergy Verified 06/11/21 14:48 - Social History Does the pt smoke?: No Smoking Status: Never smoker Does the pt drink ETOH?: No Does the pt have substance abuse?: No - Immunizations Immunizations are current?: Yes Immunizations: TDAP >10years/unknown - POLST Patient has POLST: No PD ED PE EXPANDED - General General: Alert, No acute distress, Well developed/nourished - Cardiac Cardiac: Regular Rate, Murmur Present, Radial strong equal, Pedal strong equal, Cap refill < 2 sec - Respiratory Respiratory: Clear to ausultation héctor. No: Distress, Labored - Abdomen Abdomen: Normal Bowel sounds, Tender to palpation (Tenderness to the right lower quadrant and flank without guarding or rebound. Negative Kumar's negative McBurney's. Nonperitoneal) - Back Back: Normal exam - Neuro Neuro: Alert and Oriented X 3, CNII-XII intact Results - Vitals Vitals: Vital Signs - 24 hr 06/11/21 14:48 Temperature 36.7 C Heart Rate 71 Respiratory 16 Rate Blood Pressure 189/95 H O2 Saturation 98 Oxygen O2 Source Room air - Labs Labs: Laboratory Tests 06/11/21 06/11/21 06/11/21 15:03 15:03 15:11 WBC 8.3 RBC 4.58 Hgb 13.5 Hct 40.5 MCV 88.4 MCH 29.5 MCHC 33.3 RDW 12.3 Plt Count 243 MPV 9.1 Neut # (Auto) 5.9 Lymph # (Auto) 1.6 [place] # (Auto) 0.6 Eos # (Auto) 0.1 Baso # (Auto) 0.0 Absolute Nucleated RBC 0.00 Nucleated RBC % 0.0 Sodium 139 Potassium 3.6 Chloride 107 Carbon Dioxide 25 Anion Gap 7.0 BUN 20 Creatinine 0.7 Estimated GFR (MDRD) 81 L Glucose 103 H Calcium 9.2 Total Bilirubin 0.6 AST 23 ALT 27 Alkaline Phosphatase 68 Total Protein 7.0 Albumin 3.8 Globulin 3.2 Albumin/Globulin Ratio 1.2 Lipase 44 Urine Color YELLOW Urine Clarity CLEAR Urine pH 7.0 Ur Specific [place] 1.020 Urine Protein NEGATIVE Urine Glucose (UA) NEGATIVE Urine Ketones NEGATIVE Urine Occult Blood NEGATIVE Urine Nitrite NEGATIVE Urine Bilirubin NEGATIVE Urine Urobilinogen 0.2 (NORMAL) Ur Leukocyte Esterase NEGATIVE Ur Microscopic Review NOT INDICATED Urine Culture Comments NOT INDICATED - Rads (name of study) CT abd Radiology: Final report received (No evidence of acute abdominal process. No findings for acute appendicitis. Moderately large right colonic fecal debris. Hepatic steatosis. Probable tiny 1 cm incidental renal cell carcinoma of the right kidney.) PD MEDICAL DECISION MAKING - ED course Complexity details: reviewed results, d/w patient, d/w family ED course: 80-year-old female presents emergency department for evaluation of acute right- sided abdominal pain. Has been intermittent for the last week but acutely worse this afternoon. Screening labs do not show any worrisome abnormalities. CT of the abdomen shows moderate colonic fecal debris likely the cause of pain. Incidental finding of a 1 cm right renal cell carcinoma in the right kidney. These findings were discussed with the patient. She is scheduled for colonoscopy on Monday and I have encouraged her to continue this. I have also recommended close follow-up with Dr. Dsouza as she likely needs referral to a nutrition director as well as a surgeon for further evaluation and staging of the cancer. Emergent return precautions were discussed for worsening symptoms. Departure - Departure Disposition: 01 Home, Self Care Clinical Impression: Right sided abdominal pain Constipation Qualifiers: Constipation type: unspecified constipation type Qualified Code(s): K59.00 - Constipation, unspecified Renal cell carcinoma Qualifiers: Laterality: right Qualified Code(s): C64.1 - Malignant neoplasm of right kidney, except renal pelvis Condition: Stable Instructions: ED Constipation Follow-Up: Gio Vogt MD [Primary Care Provider] - Comments: Elvia you were seen in the emergency department today for right-sided abdominal pain. The CT shows that there is a fair amount of feces in the right side of your colon. This is constipation and this is the most likely cause of your bloating and abdominal pain. Unfortunately the CT did also show an incidental finding of a 1 cm right kidney carcinoma. This should be discussed with Dr. Dsouza As soon as possible. You likely require referral to a kidney doctor as well as a surgeon for further evaluation of this cancer. It does appear to have been caught early on CAT scan. I do encourage you to complete the colonoscopy that you are scheduled to have on Monday as this will be important in further evaluation of the cancer. You develop any fevers, have black or bloody stools uncontrolled vomiting suddenly severe or different abdominal pain please return to the ER for a second look.
[2021-06-11] MEDS ORDERED: ONDANSETRON 4 MG/2 ML VIAL IVP STA (17:24)
[2021-06-11 17:47] VITALS: BP 155/92
== END 2021-06-11 18:03 | disposition home or self-care (01) ==
LOC: ED 14:43
DX: K59.00 Constipation, unspecified (principal); C64.1 Malignant neoplasm of right kidney, except renal pelvis; I10 Essential (primary) hypertension
CPT/HCPCS: 36415; 74177; 80053; 81003; 83690; 85025; 96374; 96375; 99284; J1170; Q9967; 81001; 87086

== ENCOUNTER 2021-06-14 07:54 | Day surgery (SDC) | payer MEDICARE, OTHER ==
[2021-06-14] MEDS ORDERED: LACTATED RINGERS 1,000 ML IV ONE (08:36)
[2021-06-14] MEDS ORDERED: fentaNYL 250 MCG/5 ML VIAL ONE (09:17)
[2021-06-14] MEDS ORDERED: MIDAZOLAM 2 MG/2 ML VIAL ONE ×2 (09:17→09:54)
[2021-06-14] MEDS ORDERED: LACTATED RINGERS 100 ML IV ONE ×2 (10:17)
[2021-06-14 11:11] VITALS: BP 140/85
== END 2021-06-14 07:55 | disposition home or self-care (01) ==
LOC: SDS 07:54
PROVIDERS: ATTEND Surgery
PROC: 0DBL8ZZ Excision of Transverse Colon, Via Natural or Artificial Opening Endoscopic (ICD-10-PCS; 2021-06-14)
PROC: 0DBM8ZZ Excision of Descending Colon, Via Natural or Artificial Opening Endoscopic (ICD-10-PCS; principal; 2021-06-14 09:15)
DX: Z09 Encounter for follow-up examination after completed treatment for conditions other than malignant neoplasm (principal); D12.3 Benign neoplasm of transverse colon; K63.5 Polyp of colon; Z80.0 Family history of malignant neoplasm of digestive organs
CPT/HCPCS: 45385; J3010; J7120

== ENCOUNTER 2021-11-16 11:18 | Outpatient (CLI) | payer MEDICARE, OTHER ==
--- NOTE | 2021-11-17 16:06 | Mammography Report ---
BILATERAL DIGITAL SCREENING MAMMOGRAM 3D/2D: 11/16/2021 CLINICAL: Family history of breast cancer. Routine screening. Comparison is made to exams dated: 12/19/2017 mammogram, 09/02/2015 mammogram, 05/29/2014 mammogram, mammogram, and 01/05/2012 mammogram - [facility]. The tissue of both breast s is heterogeneously dense. This may lower the sensitivity of mammography. No significant masses, calcifications, or other findings are seen in either breast. There has been no significant interval change. IMPRESSION: NEGATIVE There is no mammographic evidence of malignancy. A 1 year screening mammogram is recommended. This exam was interpreted at Station ID: [id number]. NOTE: For mammograms, a report in lay terms will be sent to the patient. Approximately 15% of breast malignancies will not be visualized mammographically. In the management of a palpable breast mass, a negative mammogram must not discourage biopsy of a clinically suspicious lesion. Electronically Signed By: Urvashi partida/jose antonio:11/16/2021 16:15:08 ACR BI-RADS Category 1: Negative 3341F PARENCHYMAL PATTERN: (D) - The breast(s) demonstrate(s) heterogeneously dense fibroglandular tawanda portillo. BI-RADS CATEGORY: (1) - 1 RECOMMENDATION: (ANNUAL) - Recommend routine annual screening mammography. [id number] 1 year screening LATERALITY: (B)
== END 2021-11-16 11:19 | disposition home or self-care (01) ==
LOC: DI.N 11:18
DX: Z12.31 Encounter for screening mammogram for malignant neoplasm of breast (principal); Z80.3 Family history of malignant neoplasm of breast

== ENCOUNTER 2021-11-29 16:05 | Outpatient (CLI) | payer MEDICARE, OTHER ==
--- NOTE | 2021-11-29 16:44 | XRAY Report ---
PROCEDURE: Lumbar Spine Complete INDICATIONS: IMPARIED VIBRATION SENSATION TECHNIQUE: 5 views of the lumbar spine were acquired. COMPARISON: None. FINDINGS: Bones: 5 [id number] vertebrae are present. There is 1.1 cm anterolisthesis of L4 on L5. Degene rative endplate changes and bilateral facet arthrosis throughout lumbar spine is seen more prominent at L4-5 and L5-S1 levels.. No vertebral body compression fractures. No suspicious bony lesions. No definite pars interarticularis defect is seen on oblique views. Soft tissues: Overlying bowel gas pattern is normal. No suspicious soft tissue calcifications. IMPRESSION: 1.1 cm anterolisthesis of L4 on L5. Degenerative endplate changes throughout lumbar spin e more prominent at L4-5 and L5-S1 levels. No acute compression fracture. No definite pars defects. Reviewed by: Ty Najera MD on 11/29/2021 4:43 PM PST Approved by: Ty Najera MD on 11/29/2021 4:43 PM PST Station ID: [id number]
== END 2021-11-29 16:06 | disposition home or self-care (01) ==
LOC: DI.N 16:05
PROVIDERS: ATTEND Family Medicine
DX: R20.8 Other disturbances of skin sensation (principal); M43.16 Spondylolisthesis, lumbar region; M47.816 Spondylosis without myelopathy or radiculopathy, lumbar region; M47.817 Spondylosis without myelopathy or radiculopathy, lumbosacral region; M51.36 Other intervertebral disc degeneration, lumbar region; M51.37 Other intervertebral disc degeneration, lumbosacral region

== ENCOUNTER 2022-02-02 12:22 | Outpatient (CLI) | payer MEDICARE, OTHER ==
[2022-02-02 17:55] LABS: BASOPHILS # (AUTO) 0.1 10^3/uL (0.0-0.1); EOSINOPHILS # (AUTO) 0.1 10^3/uL (0.0-0.7); EOSINOPHILS % (AUTO) 2.4 %; HCT - HEMATOCRIT 42.2 % (37.0-47.0); HGB - HEMOGLOBIN 13.8 g/dL (12.0-16.0); LYMPHOCYTES # (AUTO) 1.8 10^3/uL (1.5-3.5); LYMPHOCYTES % (AUTO) 30.6 %; MEAN CORPUSCULAR HGB CONC 32.7 g/dL (32.0-36.0); MEAN CORPUSCULAR VOLUME 88.7 fL (81.0-99.0); MEAN PLATELET VOLUME 9.9 fL (7.9-10.8); MONOCYTES # (AUTO) 0.3 10^3/uL (0.0-1.0); MONOCYTES % (AUTO) 5.7 %; NEUTROPHILS # (AUTO) 3.6 10^3/uL (1.5-6.6); NEUTROPHILS % (AUTO) 60.1 %; PLT - PLATELET COUNT 252 10^3/uL (130-450); RED BLOOD COUNT 4.76 10^6/uL (4.20-5.40); RED CELL DISTRIBUTION WIDTH 12.7 % (12.0-15.0)
[2022-02-02 18:17] LABS: ALBUMIN 3.8 g/dL (3.2-5.5); ALBUMIN/GLOBULIN RATIO 1.1 (1.0-2.2); ALKALINE PHOSPHATASE 61 IU/L (42-121); ALT ALANINE AMINOTRANSFERASE 22 IU/L (10-60); AST ASPARTATE AMINOTRANSFERASE 20 IU/L (10-42); BILIRUBIN,TOTAL 0.5 mg/dL (0.2-1.0); BUN - BLOOD UREA NITROGEN 32 mg/dL (6-20); CALCIUM 9.9 mg/dL (8.5-10.3); CARBON DIOXIDE - CO2 27 mmol/L (21-32); CHLORIDE 104 mmol/L (101-111); CHOL/HDL RATIO 4.6 (<4.4); CHOLESTEROL 226 mg/dL; GFR - MDRD 53 (>89); GLUCOSE 96 mg/dL (70-100); HDL CHOLESTEROL 49 mg/dL; LDL CHOLESTEROL,CALCULATED 156 mg/dL; LDL/HDL RATIO 3.2 (<4.4); POTASSIUM 4.1 mmol/L (3.5-5.0); SODIUM 139 mmol/L (135-145); TOTAL PROTEIN 7.3 g/dL (6.7-8.2); TRIGLYCERIDES 105 mg/dL; VLDL CHOLESTEROL 21 mg/dL
[2022-02-02 18:31] LABS: THYROID STIMULATING HORMONE 2.86 uIU/mL (0.34-5.60)
== END 2022-02-02 12:23 | disposition home or self-care (01) ==
LOC: LAB.N 12:22
PROVIDERS: ATTEND Family Medicine
DX: R26.89 Other abnormalities of gait and mobility (principal); R20.8 Other disturbances of skin sensation; M75.01 Adhesive capsulitis of right shoulder; M81.0 Age-related osteoporosis without current pathological fracture; E78.2 Mixed hyperlipidemia; I10 Essential (primary) hypertension; F41.9 Anxiety disorder, unspecified; F32.A Depression, unspecified
CPT/HCPCS: 36415; 80053; 80061; 83721; 84443; 85025

== ENCOUNTER 2022-02-07 20:36 | Outpatient (CLI) | payer MEDICARE, OTHER ==
--- NOTE | 2022-02-08 10:35 | Ultrasound Report ---
PROCEDURE: Retroperitoneal INDICATIONS: RENAL MASS TECHNIQUE: Real-time scanning was performed of the retroperitoneal organs, with image documentation. COMPARISON: None. FINDINGS: Kidneys: Kidneys are normal in size. Right kidney measures 10.9 cm long; left kidney measures 10.9 cm long. Right renal cortical thickness is 1.6 cm; left renal cortical thickness is 1.1 cm. No naty d masses, hydronephrosis, or nephrolithiasis. Renal echotexture appears spongiform. Previously ident ified right cortical mass on CT exam of 2020 is not visualized. Bladder: Prevoid volume 393 cc, post void residual 1 41 cc. Ureteral jets are identified bilaterally. IMPRESSION: Previously identified renal mass is not visualized on ultrasound. Ultrasound or MRI follow-up is jean-paul mmended. Renal parenchyma has a spongiform appearance. Reviewed by: Celestina Soto MD on 02/08/2022 10:34 AM PDT Approved by: Celestina Soto MD on 02/08/2022 10:34 AM PDT Station ID: [id number]
== END 2022-02-07 20:37 | disposition home or self-care (01) ==
LOC: DI 20:36
PROVIDERS: ATTEND Urology
DX: N28.89 Other specified disorders of kidney and ureter (principal)

== ENCOUNTER 2022-03-25 10:55 | Outpatient (CLI) | payer MEDICARE, OTHER ==
--- NOTE | 2022-03-25 13:38 | DEXA Report ---
PROCEDURE: Dexa Spine and/or Hip INDICATIONS: POST MENOPAUSAL TECHNIQUE: Dual energy x-ray absorptiometry (DXA) was performed on a Sgnam System. Regions measur ed are the AP Spine, femoral neck, and if needed forearm. COMPARISON: 01/16/2020 and 12/24/2017. FINDINGS: Lumbar Spine: Bone Mineral Density 0.891 g/cm/cm,T score -2.4, osteopenia Left Hip: Bone Mineral Density 0.683 g/cm/cm,T score -2.6, osteoporotic Left Femoral Neck: Bone Mineral Density 0.705 g/cm/cm, T score -2.4, osteopenia (T score greater or equal to -1.0: NORMAL) (T score from -1.1 to -2.4: OSTEOPENIA) (T score less than or equal to -2.5 to: OSTEOPOROSIS) Impression: Osteoporosis. Bone mineral density has decreased 1.6% in the interval since prior exam obtained 2019. Patients with diagnosis of osteoporosis or osteopenia should have regular bone mineral density assess ment. For those eligible for Medicare, routine testing is allowed once every 2 years. Testing frequ ency can be increased for patients who have rapidly progressing disease or for those who are receivin g medical therapy to restore bone mass. Reviewed by: Akanksha Alex MD, PhD on 03/25/2022 1:36 PM PDT Approved by: Akanksha Alex MD, PhD on 03/25/2022 1:36 PM PDT Station ID: [id number]
== END 2022-03-25 10:56 | disposition home or self-care (01) ==
LOC: DI 10:55
PROVIDERS: ATTEND Family Medicine
DX: Z78.0 Asymptomatic menopausal state (principal); M81.0 Age-related osteoporosis without current pathological fracture

== ENCOUNTER 2022-04-15 15:57 | Emergency (ER) | payer MEDICARE, OTHER ==
[2022-04-15] MEDS ORDERED: SODIUM CHLORIDE 0.9% 1,000 ML IV STA (16:28)
--- NOTE | 2022-04-15 16:28 | ED Physician Documentation ---
History of Present Illness - Stated complaint Stated Complaint: C+,WEAK,DIZZY,COUGH - Chief complaint Chief Complaint: General - Additonal information Additional information: 81-year-old female was advised to come to the emergency department For evaluation of worsening fatigue, feeling lightheaded and left arm pressure that she noted this am She reports that on 05 April she woke up feeling very fatigued had generalized myalgias and a mild cough. She presented to a local walk-in clinic on 07 April where she was screened for COVID-19. She was not notified of the positive result until April 12. She states that for much of the last week if she is simply been laying in bed. No vomiting or diarrhea. She denies any chest pain. She occasionally has difficult time catching her breath though not persistently. Past medical history is most significant for hypertension. She denies any previous history of UT or stroke. Non-smoker. No history of COPD. Review of Systems Constitutional: reports: Myalgias, Fatigue Ears: reports: Reviewed and negative Nose: reports: Reviewed and negative Cardiac: reports: Other (Left arm pressure). 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 HEENT: Tonsil/Adenoidectomy - Allergies Allergies/Adverse Reactions: Allergies Allergy/AdvReac Type Severity Reaction Status Date / Time Sulfa (Sulfonamide Allergy Unknown Verified 04/15/22 16:13 Antibiotics) lisinopril AdvReac Respiratory Verified 04/15/22 16:13 - Social History Does the pt smoke?: No Smoking Status: Never smoker Does the pt drink ETOH?: No Does the pt have substance abuse?: No - Immunizations Immunizations are current?: Yes Immunizations: TDAP >10years/unknown - POLST Patient has POLST: No PD ED PE NORMAL - General General: Alert and oriented X 3, No acute distress - HEENT HEENT: Atraumatic, Ears normal, Moist mucous membranes - Neck Neck: Supple, no meningeal sign, No JVD - Cardiac Cardiac: RRR. No: No murmur - Respiratory Respiratory: No respiratory distress, Clear bilaterally - Abdomen Abdomen: Normal bowel sounds, Soft, Non tender - Back Back: No CVA TTP - Derm Derm: Warm and dry - Extremities Extremities: No deformity - Neuro Neuro: Alert and oriented X 3 Eye Opening: Spontaneous Motor: Obeys Commands Verbal: Oriented GCS Score: 15 Results - Vitals Vitals: Vital Signs - 24 hr 04/15/22 16:09 Temperature 36.7 C Heart Rate 69 Respiratory 14 Rate Blood Pressure 176/90 H O2 Saturation 96 Oxygen O2 Source Room air - EKG (time done) 1625 Rate: Rate (enter#) (69) Rhythm: NSR Intervals: RBBB QRS: Normal Ischemia: T wave inversion (New T wave inversions in the 3 through 4 which are new from the last 2014 EKG) Compare to prior EKG: Changed from prior EKG (now RBBB) Computer interpretation: Agree with computer - Labs Labs: Laboratory Tests 04/15/22 04/15/22 04/15/22 16:35 16:35 16:35 WBC 6.9 RBC 4.68 Hgb 13.6 Hct 40.8 MCV 87.2 MCH 29.1 MCHC 33.3 RDW 12.8 Plt Count 239 MPV 9.5 Neut # (Auto) 4.0 Lymph # (Auto) 2.1 [place] # (Auto) 0.5 Eos # (Auto) 0.2 Baso # (Auto) 0.0 Absolute Nucleated RBC 0.00 Nucleated RBC % 0.0 Sodium 137 Potassium 3.8 Chloride 105 Carbon Dioxide 27 Anion Gap 5.0 L BUN 31 H Creatinine 1.0 Estimated GFR (MDRD) 53 L Glucose 99 Calcium 9.0 Total Bilirubin 0.7 AST 17 ALT 25 Alkaline Phosphatase 53 Troponin I High Sens 6.1 B-Natriuretic Peptide Total Protein 6.7 Albumin 3.3 Globulin 3.4 Albumin/Globulin Ratio 1.0 Lipase 83 H 04/15/22 16:35 WBC RBC Hgb Hct MCV MCH MCHC RDW Plt Count MPV Neut # (Auto) Lymph # (Auto) [place] # (Auto) Eos # (Auto) Baso # (Auto) Absolute Nucleated RBC Nucleated RBC % Sodium Potassium Chloride Carbon Dioxide Anion Gap BUN Creatinine Estimated GFR (MDRD) Glucose Calcium Total Bilirubin AST ALT Alkaline Phosphatase Troponin I High Sens B-Natriuretic Peptide 56 Total Protein Albumin Globulin Albumin/Globulin Ratio Lipase PD MEDICAL DECISION MAKING - ED course Complexity details: reviewed results, re-evaluated patient, d/w patient, d/w reporting process consultant ([facility] Card[facility]) ED course: This is a very pleasant 81-year-old female that presents to the emergency department for evaluation of 2 to 3 days of left arm pain and pressure. This follows a recent diagnosis of COVID-19 on 07 April. She states that for much of the last 7 to 10 days she has been very fatigued and sleeping a lot. She has no focal chest pain or shortness of air. Her screening labs were most significant for a mild BUN elevation of 31 attributing to recently decreased p.o. intake. She was given a liter of fluids here in the ER. Her troponin is negative. Chest x-ray was without acute focal findings. However her EKG does show some T wave inversions in V2 through V5. As well as a new right bundle branch block. This is new from our most recent EKG in the system 2014. I did speak with the paintless dent repair technician on-call for [facility] Dr. Araiza. He was able to review the most recent EKG in their system for her. He confirms that in 2018 she did have T wave inversions in the anterior lateral leads. So these t wave changes are not new. A nuclear med stress test in 2018 was also unremarkable. However given her age the patient will be followed up in their clinic for repeat evaluation and consideration of another stress test or echo since it has been 4 years. This plan and findings were discussed with the patient and she is comfortable with current discharge home. She has remained hemodynamically stable while here in the emergency department. Departure - Departure Disposition: Home, Self Care Clinical Impression: Left arm pain Fatigue Qualifiers: Fatigue type: unspecified Qualified Code(s): R53.83 - Other fatigue Condition: Stable Record reviewed to determine appropriate education?: Yes Comments: Elvia you are seen today in the emergency department because you have been very fatigued for much of the last week after recent COVID-19 infection. Today a chest x-ray and screening labs are all essentially normal though you may be mildly dehydrated. We did give you a liter of fluids here in the ER. Your EKG today showed that you had some changes that were new from our most recent 1 in 2014. However I was able to confirm with cardiology at [facility] and the changes that we see an EKG today were present in 2018. The cardiology office of Dr. Landrum will be contacting you for follow-up in the next week or so in order to be reseen and to obtain repeat echocardiogram and stress testing. At any point you develop chest pain, chest pressure, have any fainting episodes then you should return immediately to the ER for second evaluation.
[2022-04-15 16:42] LABS: BASOPHILS % (AUTO) 0.3 %; EOSINOPHILS # (AUTO) 0.2 10^3/uL (0.0-0.7); EOSINOPHILS % (AUTO) 2.5 %; HCT - HEMATOCRIT 40.8 % (37.0-47.0); HGB - HEMOGLOBIN 13.6 g/dL (12.0-16.0); LYMPHOCYTES # (AUTO) 2.1 10^3/uL (1.5-3.5); LYMPHOCYTES % (AUTO) 29.9 %; MEAN CORPUSCULAR HEMOGLOBIN 29.1 pg (27.0-31.0); MEAN CORPUSCULAR HGB CONC 33.3 g/dL (32.0-36.0); MEAN CORPUSCULAR VOLUME 87.2 fL (81.0-99.0); MEAN PLATELET VOLUME 9.5 fL (7.9-10.8); MONOCYTES # (AUTO) 0.5 10^3/uL (0.0-1.0); MONOCYTES % (AUTO) 7.6 %; NEUTROPHILS % (AUTO) 58.4 %; PLT - PLATELET COUNT 239 10^3/uL (130-450); RED BLOOD COUNT 4.68 10^6/uL (4.20-5.40); RED CELL DISTRIBUTION WIDTH 12.8 % (12.0-15.0); WHITE BLOOD COUNT 6.9 x10^3/uL (4.8-10.8)
[2022-04-15 17:01] LABS: ALBUMIN 3.3 g/dL (3.2-5.5); BILIRUBIN,TOTAL 0.7 mg/dL (0.2-1.0); POTASSIUM 3.8 mmol/L (3.5-5.0); TOTAL PROTEIN 6.7 g/dL (6.7-8.2)
--- NOTE | 2022-04-15 17:01 | XRAY Report ---
PROCEDURE: Chest 1 View X-Ray INDICATIONS: Chest Pain TECHNIQUE: One view of the chest was acquired. COMPARISON: None. FINDINGS: Surgical changes and devices: None. Lungs and pleura: No pleural effusions or pneumothorax. Lungs are clear. No focal consolidation. Mediastinum: Mediastinal contours appear unremarkable with mild tortuosity of the thoracic aorta. H eart size is normal. Bones and chest wall: No suspicious bony lesions. Overlying soft tissues appear unremarkable. Age-a ppropriate degenerative changes of the osseous structures. IMPRESSION: Chest without acute cardiopulmonary abnormalities. No focal consolidation seen. Reviewed by: Brice Plaza MD on 04/15/2022 5:00 PM PDT Approved by: Brice Plaza MD on 04/15/2022 5:00 PM PDT Station ID: [id number]
[2022-04-15 17:50] VITALS: BP 150/80
== END 2022-04-15 17:49 | disposition home or self-care (01) ==
LOC: ED 15:57
DX: M79.602 Pain in left arm (principal); R53.83 Other fatigue; I10 Essential (primary) hypertension
CPT/HCPCS: 36415; 80053; 83690; 83880; 84484; 85025; 93005; 96360; 99282

== ENCOUNTER 2022-07-31 16:43 | Outpatient (CLI) | payer MEDICARE, OTHER ==
--- NOTE | 2022-07-31 17:43 | XRAY Report ---
PROCEDURE: Shoulder 2 View RT INDICATIONS: FROZEN RT SHOULDER TECHNIQUE: 2 views of the shoulder were acquired. COMPARISON: 12/04/2018 FINDINGS: Bones: No fractures or dislocations. No suspicious bony lesions. Visualized ribs appear intact. R elatively prominent degenerative changes are seen, with at least moderate bilateral joint space narro wing, with associated prominent osteophyte formation along the inferomedial right humeral head. Soft tissues: No suspicious soft tissue calcifications. The visualized lung demonstrates a normal a ppearance. IMPRESSION: Prominent right shoulder degenerative changes are seen. If it would be helpful for clinical management decision making, please consider a dedicated, schedule d shoulder MRI for further evaluation (assuming that there is no contraindication). Reviewed by: Olivier Nails MD on 07/31/2022 4:42 PM ELOINA Approved by: Olivier Nails MD on 07/31/2022 4:42 PM ELOINA Station ID: [id number]
== END 2022-07-31 16:44 | disposition home or self-care (01) ==
LOC: DI 16:43
PROVIDERS: ATTEND Physician Assistant
DX: M75.01 Adhesive capsulitis of right shoulder (principal); M19.011 Primary osteoarthritis, right shoulder

== ENCOUNTER 2023-02-20 10:29 | Outpatient (CLI) | payer MEDICARE, OTHER ==
[~2023-02-20 10:29] MED LIST changes: +BUPIVACAINE 0.5% PF 10 ML VIAL ONE; -GADOBUTROL 7.5 MMOL/7.5 ML VIAL ONE; +LIDOCAINE-MPF 1% 5 ML VIAL ONE; +TRIAMCINOLONE 40 MG/ML VIAL ONE; +iohexoL-240 10 ML VIAL IVP ONE
[2023-02-20] MEDS ORDERED: LIDOCAINE-MPF 1% 5 ML VIAL SUBQ ONE (11:41)
[2023-02-20] MEDS ORDERED: iohexoL-240 10 ML VIAL IVP ONE (11:42)
[2023-02-20] MEDS ORDERED: BUPIVACAINE 0.5% PF 10 ML VIAL IM ONE (11:42)
[2023-02-20] MEDS ORDERED: TRIAMCINOLONE 40 MG/ML VIAL IM ONE (11:43)
--- NOTE | 2023-02-20 17:02 | XRAY Report ---
PROCEDURE: Inj/Aspiration Major Joint INDICATIONS: DJD RIGHT SHOULDER CONTRAST: Not visible FLUORO TIME: 0.1 min TECHNIQUE: The indications, alternatives, benefits, risks, and complications of the procedure were explained to the patient. Written informed consent was obtained and placed in the chart. The patient was placed in an appropriate position on the fluoroscopy table, and a site was chosen for percutaneous access un shelly fluoroscopic guidance. Local anesthetic was administered using a 1% lidocaine solution. A hypod ermic or spinal needle was then used to access the symptomatic joint. Intra-articular location of th e needle tip was confirmed by injecting a small amount of contrast, followed by steroid administratio n. The needle was then withdrawn, and a bandage applied to the puncture site. FINDINGS: Joint injected: Right glenohumeral Medications injected: 12 mL of 40 mg/mL Kenalog and 0.5% Ropivacaine mixture. Complications: None. Patient reports pain of 9 prior to injection, 0 following injection. IMPRESSION: Successful fluoroscopically guided administration of steroid and anaesthetic solution into the right glenohumeral joint. Reviewed by: Mati Quinones on 02/20/2023 5:01 PM PDT Approved by: Mati Quinones on 02/20/2023 5:01 PM PDT Station ID: [id number]
== END 2023-02-20 10:30 | disposition home or self-care (01) ==
LOC: DI 10:29
PROVIDERS: ATTEND Orthopaedic Surgery
DX: M19.011 Primary osteoarthritis, right shoulder (principal)
CPT/HCPCS: 20610; 77002; Q9966

== ENCOUNTER 2023-03-22 23:18 | Outpatient (CLI) | payer MEDICARE, OTHER | END 2023-03-22 23:59 | disposition critical access hospital (66) | LOC: EMS 23:18 | DX: R42 Dizziness and giddiness (principal); R11.0 Nausea; I10 Essential (primary) hypertension; R00.1 Bradycardia, unspecified | CPT/HCPCS: A0425; A0429 ==

== ENCOUNTER 2023-03-23 00:18 | Emergency (ER) | payer MEDICARE, OTHER ==
[2023-03-23] MEDS ORDERED: iohexoL-300 100 ML VIAL ONE ×2 (01:18→05:58)
[2023-03-23] MEDS ORDERED: MECLIZINE 12.5 MG TABLET PO ONE (01:35)
[2023-03-23 04:27] LABS: ALBUMIN 3.4 g/dL (3.2-5.5); BILIRUBIN,TOTAL 0.5 mg/dL (0.2-1.0); CALCIUM 9.3 mg/dL (8.5-10.3); CREATININE 0.9 mg/dL (0.4-1.0); POTASSIUM 3.9 mmol/L (3.5-5.0); TOTAL PROTEIN 6.9 g/dL (6.7-8.2)
[2023-03-23 04:28] LABS: BASOPHILS # (AUTO) 0.1 10^3/uL (0.0-0.1); BASOPHILS % (AUTO) 0.9 %; EOSINOPHILS # (AUTO) 0.2 10^3/uL (0.0-0.7); EOSINOPHILS % (AUTO) 2.8 %; HCT - HEMATOCRIT 40.6 % (37.0-47.0); HGB - HEMOGLOBIN 13.3 g/dL (12.0-16.0); LYMPHOCYTES # (AUTO) 1.7 10^3/uL (1.5-3.5); LYMPHOCYTES % (AUTO) 28.5 %; MEAN CORPUSCULAR HEMOGLOBIN 29.1 pg (27.0-31.0); MEAN CORPUSCULAR HGB CONC 32.8 g/dL (32.0-36.0); MEAN CORPUSCULAR VOLUME 88.8 fL (81.0-99.0); MEAN PLATELET VOLUME 9.5 fL (7.9-10.8); MONOCYTES # (AUTO) 0.4 10^3/uL (0.0-1.0); MONOCYTES % (AUTO) 6.4 %; NEUTROPHILS # (AUTO) 3.6 10^3/uL (1.5-6.6); NEUTROPHILS % (AUTO) 61.2 %; PLT - PLATELET COUNT 245 10^3/uL (130-450); RED BLOOD COUNT 4.57 10^6/uL (4.20-5.40); RED CELL DISTRIBUTION WIDTH 12.4 % (12.0-15.0); WHITE BLOOD COUNT 5.8 x10^3/uL (4.8-10.8)
[2023-03-23] MEDS ORDERED: iohexoL-300 100 ML VIAL IVP ONE (05:55)
--- NOTE | 2023-03-23 14:23 | CT Report ---
PROCEDURE: ANGIO HEAD W/WO INDICATIONS: Vertigo CONTRAST: Omni 300 80ml TECHNIQUE: Precontrast 4.5 mm thick angled axial sections acquired from the foramen magnum to the vertex. Afte r the administration of intravenous contrast, 1 mm thick sections acquired through the [place] is. Postcontrast 4.5 mm thick sections then re-acquired from the foramen magnum to the vertex. 3-di mensional lyblbmp-dfqptxloi-jambvdownk (MIP) and/or volume rendering reformats were acquired of the c entral intracranial vasculature. For radiation dose reduction, the following was used: automated ex posure control, adjustment of mA and/or kV according to patient size. COMPARISON: CT head without, 05/02/2017. MRI present with some without, 12/19/2019 FINDINGS: Image quality: Excellent. Anterior circulation: Intracranial internal carotid arteries are normal in size and flow. Ossified p laques in cavernous segments of the internal carotid arteries bilaterally. The flow within the paired anterior cerebral arteries is normal and symmetric. The flow within the middle cerebral arteries is normal and symmetric. The anterior communicating artery is seen. No aneurysms are seen. Posterior circulation: There is atherosclerotic calcification of the distal left vertebral artery. V isualized portions of the vertebral arteries demonstrate normal caliber, and join to form a normal ap pearing basilar artery. Flow within the posterior cerebral arteries is normal and symmetric. No ane urysms are seen. CSF spaces: Ventricles are normal in size and shape. Basal cisterns are patent. No extra-axial flu id collections. Brain: No midline shift. No intracranial bleeds or masses. Fong-white matter interface appears int act. Skull and face: Calvarium and facial bones appear intact, without suspicious lesions. Sinuses: Visualized sinuses and mastoids are clear. IMPRESSION: 1. No acute intracranial abnormality. If clinical symptoms persist, consider MRI for follow-up. 2. No high-grade stenosis or occlusion in anterior or posterior circulations. No significant discrepancy with the preliminary interpretation. Reviewed by: Bonnie Perez MD on 03/23/2023 2:22 PM PDT Approved by: Bonnie Perez MD on 03/23/2023 2:22 PM PDT Station ID: [id number]
--- NOTE | 2023-03-23 14:31 | CT Report ---
PROCEDURE: ANGIO NECK W INDICATIONS: Vertigo CONTRAST: Omni 300 80ml TECHNIQUE: After the administration of intravenous contrast, 1.5 mm axial sections acquired from the aortic arch to the [place]. Coronal 3-D maximum intensity projection (MIP) and/or volume rendering ref ormats were then performed. For radiation dose reduction, the following was used: automated exposur e control, adjustment of mA and/or kV according to patient size. COMPARISON: None. FINDINGS: Image quality: Excellent. Carotid system: The great vessels demonstrate a conventional anatomy as they arise from the aortic a rch. The origins of the common carotid arteries appear patent. The common carotid arteries demonstra te normal calibers and courses. There are calcified plaques at the carotid bifurcations. The bifurca tion regions otherwise appear normal bilaterally. The internal carotid arteries demonstrate normal c aliber and course. Posterior circulation: The origins of the vertebral arteries appear patent. Calcified plaque in the distal left vertebral artery at the skull base causing 30-50% stenosis. The more superior portions of the vertebral arteries demonstrate normal course and caliber. They join to form a normal appearing basilar artery. Soft tissues: Visualized neck soft tissues demonstrate no suspicious abnormalities. The thyroid is normal in size and there are no incidental findings. Bones: No suspicious bony lesions. Moderate degenerative disc and facet disease in cervical spine. V isualized cervical spine appears normally aligned. IMPRESSION: 1. Calcified plaques at the carotid bifurcations bilaterally. No occlusion or hemodynamic significant stenosis in carotid arteries. 2. Calcified plaques in the distal left vertebral artery at the skull base causing 30-50% stenosis. No significant discrepancy with the preliminary interpretation. The estimate of stenosis included in the report of the imaging study was calculated using the NASCET method CLINICAL RECOMMENDATION STATEMENTS: In patients <35 years with an ITN detected on CT, MRI, or extrathyroidal ultrasound, the Committee re commends further evaluation with dedicated thyroid ultrasound if the nodule is "e1 cm and has no susp icious imaging features, and if the patient has normal life expectancy. In patients "e35 years with an ITN detected on CT, MRI, or extrathyroidal ultrasound, the Committee r ecommends further evaluation with dedicated thyroid ultrasound if the nodule is "e1.5 cm and has no s uspicious imaging features, and if the patient has normal life expectancy. (ACR, 2014) Reviewed by: Bonnie Perez MD on 03/23/2023 2:30 PM PDT Approved by: Bonnie Perez MD on 03/23/2023 2:30 PM PDT Station ID: [id number]
== END 2023-03-23 04:31 | disposition home or self-care (01) ==
LOC: ED 00:18
DX: R42 Dizziness and giddiness (principal); I45.10 Unspecified right bundle-branch block
CPT/HCPCS: 36415; 70496; 70498; 80053; 83690; 85025; 93005; 99283; 99284; A9270; Q9967

== ENCOUNTER 2023-04-05 17:31 | Outpatient (CLI) | payer MEDICARE, OTHER ==
--- NOTE | 2023-04-06 10:09 | MRI Report ---
PROCEDURE: BRAIN WO INDICATIONS: VERTIGO TECHNIQUE: Noncontrast axial T1 spin echo, axial T2 fast spin echo, sagittal and axial FLAIR, coronal T2 fast sp in echo, axial gradient echo, axial diffusion and ADC through the brain. COMPARISON: Brain MRI with and without contrast dated 12/22/2017. FINDINGS: Image quality: Excellent. CSF Spaces: Basal cisterns are patent. No extra-axial fluid collections. Ventricles are normal in size and shape. Brain: There is a tiny incidental right posterior fossa meningioma which was not commented on in the prior study, which measured 7 mm at that time, on post gadolinium axial image 11 of series 901. 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 Fong/white matter interface is normal. Age-related volume loss and mild to moderate small vessel ischemic change, minimally progressed. Brainstem appears normal. Diffusion-weighted images d emonstrate no acute ischemic insult. No chronic ischemic insults. Normal intravascular flow voids a re present. Skull and face: Calvarium has normal marrow signal. Orbits appear normal. Sinuses: Sinuses and mastoids are clear. IMPRESSION: 1. No acute intracranial abnormality. 2. Stable incidental tiny 7 mm right posterior fossa meningioma. 3. Age-related volume loss and mild to moderate small vessel ischemic change, minimally progressed si nce the previous study. This is an age-appropriate finding. Reviewed by: Regino Howard MD on 04/06/2023 10:07 AM PDT Approved by: Regino Howard MD on 04/06/2023 10:07 AM PDT Station ID: [id number]
== END 2023-04-05 17:32 | disposition home or self-care (01) ==
LOC: DI 17:31
PROVIDERS: ATTEND Registered Nurse
DX: R42 Dizziness and giddiness (principal); Z63.9 Problem related to primary support group, unspecified; Z63.79 Other stressful life events affecting family and household; I10 Essential (primary) hypertension; R53.83 Other fatigue; G31.89 Other specified degenerative diseases of nervous system; I67.82 Cerebral ischemia

== ENCOUNTER 2023-05-05 11:38 | Outpatient (CLI) | payer MEDICARE, OTHER ==
[2023-05-05 11:43] LABS: BILIRUBIN,URINE NEGATIVE (NEGATIVE); GLUCOSE, URINE (UA) NEGATIVE (NEGATIVE); KETONES,URINE (UA) NEGATIVE (NEGATIVE); LEUKOCYTE ESTERASE, URINE NEGATIVE (NEGATIVE); NITRITE,URINE NEGATIVE (NEGATIVE); OCCULT BLOOD,URINE NEGATIVE (NEGATIVE); PH,URINE 7.5 PH (5.0-7.5); PROTEIN,URINE NEGATIVE (NEGATIVE); UROBILINOGEN,URINE 0.2 (NORMAL) E.U./dL (NORMAL)
[2023-05-05 11:51] LABS: BACTERIA,URINE Rare /HPF (None Seen); CLARITY,URINE CLEAR (CLEAR); RBC,URINE 0-5 /HPF (0-5); SQUAMOUS EPITHELIAL CELL,UR NONE SEEN (<= Few); WBC,URINE 0-3 /HPF (0-5)
== END 2023-05-05 11:39 | disposition home or self-care (01) ==
LOC: LAB 11:38
PROVIDERS: ATTEND Urology
DX: R32 Unspecified urinary incontinence (principal)
CPT/HCPCS: 81001; 87086

== ENCOUNTER 2023-05-30 08:00 | Outpatient (CLI) | payer MEDICARE, OTHER ==
--- NOTE | 2023-05-30 15:48 | XRAY Report ---
PROCEDURE: Shoulder 3 View RT INDICATIONS: RIGHT SHOULDER PAIN TECHNIQUE: 4 views of the shoulder were acquired. COMPARISON: 08/18/2022 FINDINGS: Bones: No fractures or dislocations. No suspicious bony lesions. Visualized ribs appear intact. Severe degenerative changes of the glenohumeral joint present as before. Soft tissues: No suspicious soft tissue calcifications. IMPRESSION: No acute bony abnormality. If pain persists with conservative management, consider repeat radiographs in 10-14 days or cross-sectional imaging. Severe degenerative changes of the glenohumeral joint redemonstrated. Reviewed by: Venu Romero MD on 05/30/2023 3:39 PM PDT Approved by: Venu Romero MD on 05/30/2023 3:39 PM PDT Station ID: [id number]
== END 2023-05-30 23:59 | disposition home or self-care (01) ==
LOC: DI.WOS 08:00
PROVIDERS: ATTEND Physician Assistant Surgical
DX: M19.011 Primary osteoarthritis, right shoulder (principal)

== ENCOUNTER 2023-06-30 12:30 | Outpatient (CLI) | payer MEDICARE, OTHER ==
--- NOTE | 2023-06-30 20:23 | XRAY Report ---
PROCEDURE: Abdomen 1 View X-Ray INDICATIONS: RECTAL INCONTINENCE TECHNIQUE: One view of the abdomen acquired. COMPARISON: None. FINDINGS: Surgical changes and devices: None. Bowel: Bowel gas pattern is normal. Soft tissues: No suspicious abdominal calcifications. Visualized solid organ contours appear normal in size. Bones: No suspicious bony lesions. IMPRESSION: No acute abdominal pathology. Reviewed by: Celestina Soto MD on 06/30/2023 8:22 PM PDT Approved by: Celestina Stoo MD on 06/30/2023 8:22 PM PDT Station ID: [id number]
== END 2023-06-30 12:31 | disposition home or self-care (01) ==
LOC: DI 12:30
PROVIDERS: ATTEND Family Medicine
DX: R15.9 Full incontinence of feces (principal)

== ENCOUNTER 2023-11-30 16:00 | Outpatient (CLI) | payer MEDICARE, OTHER ==
--- NOTE | 2023-12-01 10:50 | MRI Report ---
PROCEDURE: SHOULDER WO - RT INDICATIONS: RIGHT SHOULDER STRAIN TECHNIQUE: Noncontrast oblique coronal T2 fast spin echo with fat saturation, oblique sagittal T1 spin echo and T2 fast spin echo with fat saturation, axial T1 spin echo and T2 fast spin echo with fat saturation t hrough the shoulder. COMPARISON: None. FINDINGS: Image quality: Excellent. Rotator cuff: Moderate to high-grade articular and bursal surface partial-thickness tear involving di stal supraspinatus at its insertion on humeral head is seen extending to muscular tendinous junction. Tendinosis and low-grade articular surface partial-thickness involving distal subscapularis at its i nsertion on humeral head is seen. Moderate grade partial thickness tear involving distal subscapulari s is also noted. No definite full-thickness rotator cuff tendon rupture. Moderate supraspinatus muscl e atrophy is seen on sagittal images. Bones and bursae: Severe glenohumeral joint osteoarthritic changes are seen with near complete loss o f joint space, extensive subchondral sclerosis and edema. Moderate acromioclavicular joint osteoarthr itic changes also seen with joint space narrowing at downward osteophyte formation depressing on musc ulotendinous junction of supraspinatus. No acute fracture or dislocation. Moderate to large amount of joint effusion and moderate amount of subacromial subdeltoid bursal fluid is seen. There are suggest ion of small gravel-like intra-articular loose bodies within dependent portion of glenohumeral joint space. Moderate to large amount of subcoracoid bursal fluid is also noted. Capsule and soft tissues: There is suggestion of extensive anterior labral tear from 12 to 6:00 posit ion with extensive fraying and global signal abnormality. The long head of the biceps tendinosis is s een. The rotator interval appears normal, without fibrosis. The coracohumeral ligament is normal in thickness. IMPRESSION: 1. Moderate to high-grade articular and bursal surface partial-thickness involving distal supraspinat us extending to muscular tendinous junction. Low-grade articular surface partial-thickness involving distal infraspinatus. Moderate grade intrasubstance partial thickness tear involving subscapularis. N o definite full-thickness rotator cuff tendon rupture. Moderate supraspinatus muscle atrophy. 2. Moderate to large joint effusion and subacromial subdeltoid bursal fluid and subcortical and bursa l fluid. Small gravel-like intra-articular loose bodies throughout dependent portion of the glenohume ral joint space. 3. Severe glenohumeral joint osteoarthritis and mild to moderate acromioclavicular joint osteoarthrit is. No fracture or dislocation. 4. Suggestion of extensive anterior labral tear at 12 to 6:00 position. 5. Proximal long head of biceps tendinosis. Reviewed by: Ty Najera MD on 12/01/2023 10:48 AM RUST Approved by: Ty Najera MD on 12/01/2023 10:48 AM PST Station ID: [id number]
== END 2023-11-30 16:01 | disposition home or self-care (01) ==
LOC: DI 16:00
PROVIDERS: ATTEND Emergency Medicine
DX: S46.011A Strain of muscle(s) and tendon(s) of the rotator cuff of right shoulder, initial encounter (principal); M62.511 Muscle wasting and atrophy, not elsewhere classified, right shoulder; M25.411 Effusion, right shoulder; M75.51 Bursitis of right shoulder; M24.011 Loose body in right shoulder; M19.011 Primary osteoarthritis, right shoulder; M67.813 Other specified disorders of tendon, right shoulder

== ENCOUNTER 2024-01-23 12:29 | Outpatient (CLI) | payer MEDICARE, OTHER ==
[2024-01-23 17:49] LABS: BASOPHILS % (AUTO) 0.4 %; EOSINOPHILS % (AUTO) 0.3 %; HGB - HEMOGLOBIN 13.5 g/dL (12.0-16.0); LYMPHOCYTES % (AUTO) 20.5 %; MEAN CORPUSCULAR HEMOGLOBIN 28.7 pg (27.0-31.0); MEAN CORPUSCULAR HGB CONC 32.1 g/dL (32.0-36.0); MEAN CORPUSCULAR VOLUME 89.2 fL (81.0-99.0); MEAN PLATELET VOLUME 9.9 fL (7.9-10.8); MONOCYTES # (AUTO) 0.6 10^3/uL (0.0-1.0); NEUTROPHILS # (AUTO) 7.1 10^3/uL (1.5-6.6); NEUTROPHILS % (AUTO) 72.6 %; PLT - PLATELET COUNT 250 10^3/uL (130-450); RED BLOOD COUNT 4.71 10^6/uL (4.20-5.40); RED CELL DISTRIBUTION WIDTH 12.9 % (12.0-15.0); WHITE BLOOD COUNT 9.8 x10^3/uL (4.8-10.8)
[2024-01-23 18:18] LABS: THYROID STIMULATING HORMONE 2.75 uIU/mL (0.34-5.60)
[2024-01-23 18:32] LABS: BUN - BLOOD UREA NITROGEN 26 mg/dL (6-20); CALCIUM 10.2 mg/dL (8.5-10.3); CARBON DIOXIDE - CO2 27 mmol/L (21-32); CHLORIDE 106 mmol/L (101-111); CHOL/HDL RATIO 3.9 (<4.4); CHOLESTEROL 189 mg/dL; CREATININE 0.9 mg/dL (0.6-1.3); GFR - MDRD 60 (>89); GLUCOSE 105 mg/dL (74-104); HDL CHOLESTEROL 49 mg/dL; LDL CHOLESTEROL,CALCULATED 120 mg/dL; LDL/HDL RATIO 2.4 (<4.4); SODIUM 139 mmol/L (135-145); TRIGLYCERIDES 102 mg/dL (48-352); VLDL CHOLESTEROL 20 mg/dL
== END 2024-01-23 12:30 | disposition home or self-care (01) ==
LOC: LAB.N 12:29
PROVIDERS: ATTEND Nurse Practitioner Acute Care
DX: I10 Essential (primary) hypertension (principal); E78.5 Hyperlipidemia, unspecified
CPT/HCPCS: 36415; 80048; 80061; 83721; 84439; 84443; 85025

== ENCOUNTER 2024-04-15 13:14 | Outpatient (CLI) | payer MEDICARE, OTHER ==
--- NOTE | 2024-04-16 08:45 | DEXA Report ---
PROCEDURE: Dexa Spine and/or Hip INDICATIONS: POST MENOPAUSAL TECHNIQUE: Dual energy x-ray absorptiometry (DXA) was performed on a [employer] System. Regions measur ed are the AP Spine, femoral neck, and if needed forearm. COMPARISON: 03/25/2022 FINDINGS: Lumbar Spine: Bone Mineral Density: 0.87 g/cm/cm,T score: -2.6. Previously -2.4 Left Femoral Neck: Bone Mineral Density: 0.66 g/cm/cm, T score: -2.7, previously -2.4. Left Hip: Bone Mineral Density: 0.68 g/cm/cm,T score: -2.6. Previously -2.6 (T score greater or equal to -1.0: NORMAL) (T score from -1.1 to -2.4: OSTEOPENIA) (T score less than or equal to -2.5 to: OSTEOPOROSIS) Impression: By WHO criteria, this patient has osteoporosis. T-scores are similar compared to prior imaging. Patients with diagnosis of osteoporosis or osteopenia should have regular bone mineral density assess ment. For those eligible for Medicare, routine testing is allowed once every 2 years. Testing frequ ency can be increased for patients who have rapidly progressing disease or for those who are receivin g medical therapy to restore bone mass. Reviewed by: Livan Hung MD on 04/16/2024 8:44 AM PDT Approved by: Livan Hung MD on 04/16/2024 8:44 AM PDT Station ID: [id number]
== END 2024-04-15 13:15 | disposition home or self-care (01) ==
LOC: DI 13:14
PROVIDERS: ATTEND Family Medicine
DX: M81.0 Age-related osteoporosis without current pathological fracture (principal); Z78.0 Asymptomatic menopausal state

== ENCOUNTER 2024-06-24 10:01 | Outpatient (CLI) | payer MEDICARE, OTHER | END 2024-06-24 23:59 | disposition critical access hospital (66) | LOC: EMS 10:01 | DX: R53.1 Weakness (principal); R11.0 Nausea; R26.81 Unsteadiness on feet; R42 Dizziness and giddiness | CPT/HCPCS: A0425; A0429 ==

== ENCOUNTER 2024-06-24 10:28 | Emergency (ER) | payer MEDICARE, OTHER ==
--- NOTE | 2024-06-24 11:45 | ED Physician Documentation ---
History of Present Illness - Stated complaint Stated Complaint: GEN WEAKNESS - Chief complaint Chief Complaint: General - Additonal information Additional information: Patient is an 83-year-old female presenting to the emergency department with generalized weakness. Patient notes she woke up this morning and was able to walk to her recliner but afterwards could not get back up. She notes generalized fatigue and weakness that started this morning suddenly. She denies any unilateral weakness no numbness or tingling. She notes yesterday she was working a lot and not drinking much water or eating. She notes when she went to bed she was having worsening right shoulder pain and took a tramadol around 1 AM. Patient denies any vision changes no difficulty finding words. NIH score of 0 on arrival. Patient has a history of vertigo and she does not feel dizziness symptoms but does not feel as if it is her normal vertigo symptoms. Patient denies any history of coronary artery disease, no history of CT. No history of COPD or stroke history. Patient denies any fevers or chills recently. She is being further evaluated for her chronic right shoulder pain that she notes has worsened over the last few days. She denies any anterior chest pain no shortness of breath this morning. She is supposed to take hydrochlorothiazide but has missed the last few doses. She takes it for blood pressure control but denies taking any other medications at home other than supplements. 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 HEENT: Tonsil/Adenoidectomy - Present Medications Home Medications: Ambulatory Orders Medication Instructions Recorded Confirmed Lidocaine Patch 5% [Lidoderm Patch] 1 patch TOP DAILY PRN #10 patch 06/24/24 - Allergies Allergies/Adverse Reactions: Allergies Allergy/AdvReac Type Severity Reaction Status Date / Time Sulfa (Sulfonamide Allergy Unknown Verified 06/24/24 10:41 Antibiotics) lisinopril AdvReac Respiratory Verified 06/24/24 10:41 - Social History Does the pt smoke?: No Smoking Status: Never smoker Does the pt drink ETOH?: No Does the pt have substance abuse?: No - Immunizations Immunizations are current?: Yes Immunizations: TDAP >10years/unknown - POLST Patient has POLST: No PD ED PE NORMAL - Vitals Vital signs reviewed: Yes - General General: Alert and oriented X 3, No acute distress, Well developed/nourished - HEENT HEENT: Atraumatic, PERRL, EOMI, Ears normal (No cerumen noted no erythematous TM noted bilaterally.), Moist mucous membranes - Neck Neck: Supple, no meningeal sign, No bony TTP, No JVD - Cardiac Cardiac: RRR, No murmur, No gallop, No rub - Respiratory Respiratory: No respiratory distress, Clear bilaterally - Abdomen Abdomen: Normal bowel sounds, Non tender, Non distended - Female Female : Deferred - Rectal Rectal: Deferred - Extremities Extremities: Other (Right shoulder anterior tenderness with right shoulder held anteriorly on examination. 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 Cranial nerves intact [id number] test intact. Strength intact in upper and lower extremities. Decreased range of motion of right shoulder however this is secondary to pain patient neurovascularly intact distally to right shoulder.) Eye Opening: Spontaneous Motor: Obeys Commands Verbal: Oriented GCS Score: 15 - Psych Psych: Normal mood, Normal affect Results - Vitals Vitals: Vital Signs - 24 hr 06/24/24 06/24/24 06/24/24 10:34 12:41 14:51 Temperature 36.4 C L Heart Rate 62 71 Heart Rate [ 74 Sitting] Heart Rate [ 80 Standing] Heart Rate [ 68 Supine] Respiratory 16 18 Rate Blood Pressure 175/81 H 126/87 H Blood Pressure 174/79 H [Sitting] Blood Pressure 162/72 H [Standing] Blood Pressure 184/74 H [Supine] O2 Saturation 100 97 06/24/24 15:45 Temperature Heart Rate 78 Heart Rate [ Sitting] Heart Rate [ Standing] Heart Rate [ Supine] Respiratory 16 Rate Blood Pressure 172/91 H Blood Pressure [Sitting] Blood Pressure [Standing] Blood Pressure [Supine] O2 Saturation 99 Oxygen O2 Source Room air - EKG (time done) 1130 EKG releavant findings:: EKG personally interpreted by author of this note. Relevant findings are: Known right bundle branch block with sinus rhythm T wave inversion noted in leads V3,4,5. These are stable findings from repeat x-ray from 2022. Rate: Rate (enter#), Dm, Tachy, Other [place]: Normal Intervals: Normal PA QRS: Normal Ischemia: Normal ST segments Compare to prior EKG: Unchanged from prior EKG Computer interpretation: Agree with computer - Labs Labs: Laboratory Tests 06/24/24 06/24/24 06/24/24 11:42 11:42 11:47 WBC 8.7 RBC 4.45 Hgb 13.2 Hct 38.8 MCV 87.2 MCH 29.7 MCHC 34.0 RDW 12.8 Plt Count 222 MPV 9.4 Neut # (Auto) 6.4 Lymph # (Auto) 1.8 Casey # (Auto) 0.4 Eos # (Auto) 0.1 Baso # (Auto) 0.1 Absolute Nucleated RBC 0.00 Nucleated RBC % 0.0 Sodium 137 Potassium 3.8 Chloride 106 Carbon Dioxide 24 Anion Gap 7.0 BUN 22 H Creatinine 0.9 Estimated GFR (MDRD) 60 L Glucose 112 H POC Whole Bld Glucose 93 Calcium 9.1 Magnesium 1.9 Total Bilirubin 0.6 AST 17 ALT 20 Alkaline Phosphatase 70 Total Creatine Kinase 70 Troponin I High Sens 5.7 Total Protein 7.1 Albumin 3.6 Globulin 3.5 Albumin/Globulin Ratio 1.0 Urine Color Urine Clarity Urine pH Ur Specific [place] Urine Protein Urine Glucose (UA) Urine Ketones Urine Occult Blood Urine Nitrite Urine Bilirubin Urine Urobilinogen Ur Leukocyte Esterase Ur Microscopic Review Urine Culture Comments Nasal Adenovirus (PCR) Nasal B. parapertussis DNA (PCR) Nasal Coronavir 229E PCR Nasal Coronavir HKU1 PCR Nasal Coronavir NL63 PCR Nasal Coronavir OC43 PCR Nasal Enterovir/Rhinovir PCR Nasal Influenza B PCR Nasal Influenza A PCR Nasal Parainfluen 1 PCR Nasal Parainfluen 2 PCR Nasal Parainfluen 3 PCR Nasal Parainfluen 4 PCR Nasal RSV (PCR) Nasal B.pertussis DNA PCR Nasal C.pneumoniae (PCR) [place] Human Metapneumo PCR Nasal M.pneumoniae (PCR) Nasal SARS-CoV-2 (PCR) 06/24/24 06/24/24 12:20 12:22 WBC RBC Hgb Hct MCV MCH MCHC RDW Plt Count MPV Neut # (Auto) Lymph # (Auto) Casey # (Auto) Eos # (Auto) Baso # (Auto) Absolute Nucleated RBC Nucleated RBC % Sodium Potassium Chloride Carbon Dioxide Anion Gap BUN Creatinine Estimated GFR (MDRD) Glucose POC Whole Bld Glucose Calcium Magnesium Total Bilirubin AST ALT Alkaline Phosphatase Total Creatine Kinase Troponin I High Sens Total Protein Albumin Globulin Albumin/Globulin Ratio Urine Color YELLOW Urine Clarity CLEAR Urine pH 6.5 Ur Specific [place] 1.010 Urine Protein NEGATIVE Urine Glucose (UA) NEGATIVE Urine Ketones NEGATIVE Urine Occult Blood NEGATIVE Urine Nitrite NEGATIVE Urine Bilirubin NEGATIVE Urine Urobilinogen 0.2 (NORMAL) Ur Leukocyte Esterase NEGATIVE Ur Microscopic Review NOT INDICATED Urine Culture Comments NOT INDICATED Nasal Adenovirus (PCR) NOT DETECTED Nasal B. parapertussis DNA (PCR) NOT DETECTED Nasal Coronavir 229E PCR NOT DETECTED Nasal Coronavir HKU1 PCR NOT DETECTED Nasal Coronavir NL63 PCR NOT DETECTED Nasal Coronavir OC43 PCR NOT DETECTED Nasal Enterovir/Rhinovir PCR NOT DETECTED Nasal Influenza B PCR NOT DETECTED Nasal Influenza A PCR NOT DETECTED Nasal Parainfluen 1 PCR NOT DETECTED Nasal Parainfluen 2 PCR NOT DETECTED Nasal Parainfluen 3 PCR NOT DETECTED Nasal Parainfluen 4 PCR NOT DETECTED Nasal RSV (PCR) NOT DETECTED Nasal B.pertussis DNA PCR NOT DETECTED Nasal C.pneumoniae (PCR) NOT DETECTED [place] Human Metapneumo PCR NOT DETECTED Nasal M.pneumoniae (PCR) NOT DETECTED Nasal SARS-CoV-2 (PCR) NOT DETECTED PD Medical Decision Making - ED course Complexity details: reviewed old records, reviewed results ED course: Patient is an 83-year-old female presenting to the emergency department with generalized weakness after trying to get up this morning patient unable to due to generalized fatigue and weakness. Patient notes she took a tramadol last night around 1 AM denies any symptoms at that time. Patient notes she does not regularly take this medication and only took it for right shoulder pain that has been going on for about a week and a half. She notes it is a chronic right shoulder problem that she has had imaging done here at [facility] a few months ago for. She is following up with orthopedics in the outpatient setting. Patient on arrival was brought in by EMS due to generalized fatigue and had positive orthostatics from sitting to standing. Patient has history of vertigo but she reported the symptoms did not feel similar. Patient did report eating and drinking significantly less yesterday. Given patient's weakness we will work patient up for possible infectious cause versus cardiac component versus anemia or dehydration. However symptoms could be secondary to recent tramadol use as well as decreased intake over the last 2 days and positive orthostatics. Will try course of 1 L of fluids here in the emergency department while pending workup. EKG on arrival showed known right bundle branch block with T wave inversions in V45 and 6 this is unchanged from EKG in 2022. QTc on arrival was 436 will give course of meclizine to see if this helps with patient's lightheadedness symptoms as well. Patient is repeat orthostatics after 1 L of fluids are negative here in the emergency department. Labs show No leukocytosis hemoglobin is stable no signs of anemia. Additionally patient has chest x-ray showing no acute cardiopulmonary process. Troponin is within normal range and EKG shows no acute changes from previous. Patient given meclizine for symptoms of dizziness with improvement in symptoms as well. Patient eating and drinking here in the emergency department as well. X-ray of right shoulder obtained given patient's persistent pain showing no acute findings only severe osteoarthritis. This explains patient's current right shoulder pain. She was given lidocaine patches for prescription home. Patient requesting stronger pain medication however after she took tramadol last night of concerns this is what caused her lightheadedness symptoms today. Discussed with patient taking [id number] Tylenol and ibuprofen for pain control and continue with lidocaine patches and following up with orthopedics. Patient understands and is agreeable with this plan. Patient was ambulated here in the emergency department and passed she is feeling significantly better since arrival. Patient will be discharged home. Strict return precautions given. Departure - Departure Disposition: 01 Home, Self Care Clinical Impression: Lightheadedness, Weakness, Right shoulder pain Condition: Good Prescriptions: Lidocaine Patch 5% [Lidoderm Patch] 1 patch TOP DAILY PRN #10 patch PRN Reason: pain Comments: You were seen here in the emergency department for your lightheadedness symptoms you symptoms most likely secondary to dehydration at giving you a liter of fluids to help with your symptoms. When you return home eat a full meal and follow-up with your PCP in outpatient setting. Forms: PCP List
--- NOTE | 2024-06-24 11:58 | XRAY Report ---
PROCEDURE: Shoulder 2+V RT INDICATIONS: right shoulder pain TECHNIQUE: 3 views of the shoulder were acquired. COMPARISON: None. FINDINGS: Bones: No fractures or dislocations. No suspicious bony lesions. Visualized ribs appear intact. Se lottie glenohumeral joint space narrowing with osteophytosis and subchondral sclerosis. Soft tissues: No suspicious soft tissue calcifications. The visualized lungs are within normal limi ts. IMPRESSION: Severe glenohumeral osteoarthritis. Reviewed by: Mati Quinones MD on 06/24/2024 11:57 AM PDT Approved by: Mati Quinones MD on 06/24/2024 11:57 AM PDT Station ID: [id number]
--- NOTE | 2024-06-24 11:58 | XRAY Report ---
PROCEDURE: Chest 1V INDICATIONS: weakness TECHNIQUE: One view of the chest was acquired. COMPARISON: 04/15/2022 FINDINGS: Surgical changes and devices: None. Lungs and pleura: No pleural effusions or pneumothorax. Lungs are clear. Mediastinum: Mediastinal contours appear normal. Heart size is normal. Bones and chest wall: No suspicious bony lesions. Overlying soft tissues appear unremarkable. IMPRESSION: No acute cardiopulmonary process. Reviewed by: Mati Quinones MD on 06/24/2024 11:56 AM PDT Approved by: Mati Quinones MD on 06/24/2024 11:56 AM PDT Station ID: [id number]
[2024-06-24 11:59] LABS: BASOPHILS # (AUTO) 0.1 10^3/uL (0.0-0.1); BASOPHILS % (AUTO) 0.6 %; EOSINOPHILS # (AUTO) 0.1 10^3/uL (0.0-0.7); EOSINOPHILS % (AUTO) 0.6 %; HCT - HEMATOCRIT 38.8 % (37.0-47.0); HGB - HEMOGLOBIN 13.2 g/dL (12.0-16.0); LYMPHOCYTES # (AUTO) 1.8 10^3/uL (1.5-3.5); LYMPHOCYTES % (AUTO) 20.2 %; MEAN CORPUSCULAR HEMOGLOBIN 29.7 pg (27.0-31.0); MEAN CORPUSCULAR VOLUME 87.2 fL (81.0-99.0); MEAN PLATELET VOLUME 9.4 fL (7.9-10.8); MONOCYTES # (AUTO) 0.4 10^3/uL (0.0-1.0); MONOCYTES % (AUTO) 4.7 %; NEUTROPHILS # (AUTO) 6.4 10^3/uL (1.5-6.6); NEUTROPHILS % (AUTO) 73.6 %; PLT - PLATELET COUNT 222 10^3/uL (130-450); RED BLOOD COUNT 4.45 10^6/uL (4.20-5.40); RED CELL DISTRIBUTION WIDTH 12.8 % (12.0-15.0); WHITE BLOOD COUNT 8.7 x10^3/uL (4.8-10.8)
[2024-06-24 12:08] LABS: ALBUMIN 3.6 g/dL (3.2-5.5); BILIRUBIN,TOTAL 0.6 mg/dL (0.2-1.0); CALCIUM 9.1 mg/dL (8.5-10.3); CREATININE 0.9 mg/dL (0.6-1.3); MAGNESIUM 1.9 mg/dL (1.7-2.3); POTASSIUM 3.8 mmol/L (3.5-4.5); TOTAL PROTEIN 7.1 g/dL (6.4-8.9)
[2024-06-24 12:14] LABS: TROPONIN I HIGH SENSITIVITY 5.7 ng/L (2.3-14.8)
[2024-06-24] MEDS: LACTATED RINGERS 1,000 ML IV STA (12:15)
[2024-06-24] MEDS: MECLIZINE 12.5 MG TABLET PO STA (12:16)
[2024-06-24 12:31] LABS: BILIRUBIN,URINE NEGATIVE (NEGATIVE); GLUCOSE, URINE (UA) NEGATIVE (NEGATIVE); KETONES,URINE (UA) NEGATIVE (NEGATIVE); LEUKOCYTE ESTERASE, URINE NEGATIVE (NEGATIVE); NITRITE,URINE NEGATIVE (NEGATIVE); OCCULT BLOOD,URINE NEGATIVE (NEGATIVE); PH,URINE 6.5 PH (5.0-7.5); PROTEIN,URINE NEGATIVE (NEGATIVE); UROBILINOGEN,URINE 0.2 (NORMAL) E.U./dL (NORMAL)
[2024-06-24 12:33] LABS: CLARITY,URINE CLEAR (CLEAR)
[2024-06-24 13:20] LABS: B. PARAPERTUSSIS- RESP PCR PAN NOT DETECTED; B. PERTUSSIS- RESP PCR PANEL NOT DETECTED; C. PNEUMONIAE- RESP PCR PANEL NOT DETECTED; CORONAVIRUS 229E-RESP PCR NOT DETECTED; CORONAVIRUS HKU1-RESP PCR NOT DETECTED; CORONAVIRUS NL63-RESP PCR NOT DETECTED; CORONAVIRUS OC43-RESP PCR NOT DETECTED; HUMAN METAPNEUMOVIRUS NOT DETECTED; INFLUENZA A- RESP PCR PANEL NOT DETECTED; INFLUENZA B - RESP PCR PANEL NOT DETECTED; M. PNEUMONIAE- RESP PCR PANEL NOT DETECTED; PARAINFLUENZA VIRUS 1 NOT DETECTED; PARAINFLUENZA VIRUS 2 NOT DETECTED; PARAINFLUENZA VIRUS 3 NOT DETECTED; PARAINFLUENZA VIRUS 4 NOT DETECTED; RHINOVIRUS/ENTEROVIRUS NOT DETECTED; RSV- RESP PCR PANEL NOT DETECTED; SARS-CoV-2 -RESP PCR PANEL NOT DETECTED
[2024-06-24 15:54] VITALS: BP 172/91; O2SAT 99
== END 2024-06-24 15:55 | disposition home or self-care (01) ==
LOC: EDUNIT# → ED 10:28
DX: R42 Dizziness and giddiness (principal); R53.1 Weakness; M25.511 Pain in right shoulder; I45.10 Unspecified right bundle-branch block; M19.011 Primary osteoarthritis, right shoulder; I10 Essential (primary) hypertension
CPT/HCPCS: 36415; 71045; 73030; 80053; 81003; 82550; 83735; 84484; 85025; 87633; 93005; 99284; A9270; J7120; 81001; 87086

== ENCOUNTER 2024-06-26 12:26 | Emergency (ER) | payer MEDICARE, OTHER ==
[2024-06-26 12:44] VITALS: O2SAT 98
--- NOTE | 2024-06-26 12:53 | ED Physician Documentation ---
History of Present Illness - Stated complaint Stated Complaint: RT HAND PX - Chief complaint Chief Complaint: Ext Problem - History obtained from History obtained from: Patient - Additonal information Additional information: This is a 83-year-old female who presents with right wrist pain after a fall around 2 or 3 in the morning. Patient states that she took a Xanax to help her sleep, and then got up in the middle the night and fell. She is not sure if she got dizzy and fell but she fell on outstretched hand, she does not believe she passed out, and she was able to crawl and eventually get up on her own. She does live with her that he was sleeping soundly and she did not want to wake him. She states she did not hit her head, had no seizure-like activity no loss of bowel or bladder, no chest pain or trouble breathing. She does note however for the last week or so she has not been feeling well, she has been feeling generally weak, fatigued, and has not had much of an appetite. She was seen here on 06/24 for this and had a reassuring lab workup but states she does not feel any better. She declines repeat lab workup today however, declined syncope workup, EKG, IV, and would like simply to have her wrist x-rayed and treatment for her pain. She states she has been having lower leg weakness for the better part of this year, it seemed to start in the wintertime and has pro gressed fairly quickly since then. She states she just feels wobbly at times in her legs, has some occasional sahv-fxk-comhnfs feeling at nighttime but no history of neuropathy. She states she has been less active since then and has lost muscle tone, stopped doing nilda chi, And it thinks her weakness is largely related to her decreased activity. She uses a cane sometimes at home but mostly holds onto the wall and walks around. She states her symptoms are not due to vertigo or dizziness, she has had vertigo in the past and it does not feel like this. She feels like her legs are just generally weak.She has been followed with her PCP for this.. 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: Other HEENT: Tonsil/Adenoidectomy - Present Medications Home Medications: Ambulatory Orders Medication Instructions Recorded Confirmed Lidocaine Patch 5% [Lidoderm Patch] 1 patch TOP DAILY PRN #10 patch 06/24/24 Diclofenac Sodium 1% Gel [Voltaren 2 gm TOP QID #50 gm 06/26/24 Gel] HYDROcod/ACETAM 5/325 [[place]gan 5/325] 1 - 2 tablet PO Q6H PRN #14 tablet 06/26/24 predniSONE [Deltasone] 40 mg PO DAILY 5 Days #10 tablet 06/26/24 - Allergies Allergies/Adverse Reactions: Allergies Allergy/AdvReac Type Severity Reaction Status Date / Time Sulfa (Sulfonamide Allergy Unknown Verified 06/26/24 12:47 Antibiotics) - Social History Does the pt smoke?: No Smoking Status: Never smoker Does the pt drink ETOH?: No Does the pt have substance abuse?: No - Immunizations Immunizations are current?: Yes Immunizations: TDAP >10years/unknown - POLST Patient has POLST: No Results - Vitals Vitals: Vital Signs - 24 hr 06/26/24 12:31 Temperature 37.1 C Heart Rate 88 Respiratory 18 Rate Blood Pressure 186/77 H O2 Saturation 98 Oxygen O2 Source Room air - Rads (name of study) No standard instances Relevant Findings:: Final report received PD Medical Decision Making - ED course Complexity details: reviewed old records, reviewed results, re-evaluated patient, considered differential, d/w patient ED course: This is a 83-year-old female who presented after a fall last night in which she injured her right wrist. She has swelling and contusion on the right wrist, with generalized tenderness, chronic right shoulder injury, no other extremity pain or injuries. Initially discussed doing an entire syncope workup however patient declined lab work and EKG, had a complete workup 2 days ago which was generally reassuring, and after further discussion with the patient this gait instability, leg weakness, has been going on for many months, probably since this winter and worsening. She has had a decrease in her physical activity I think some muscle wasting, some decrease in mobility. She was advised to utilize her walker or cane, and try to get into physical therapy for gait strength training. We did obtain x-ray of her right wrist due to concern for possible fracture and this was negative for fracture or dislocation. Recommended supportive measures including cool compress, Tylenol, and pain control as needed. Patient tells me thatIn the past she has not tolerated it oral NSAIDs well due to stomach discomfortSo will give diclofenac ointment, and she has had good success with short courses of steroids in the past so I will give her the prednisone After discussion of risk versus benefits. She has been o n tramadol in the past that she did not like as it did not make her feel well. In any case, the patient is stable for discharge home at this time, she will continue working with her primary doctor for her gait instability, and encouraged her to get into physical therapy and back into light activity with support to strengthen her gait. Return precautions reviewed if new or worsening symptoms. Departure - Departure Disposition: 01 Home, Self Care Clinical Impression: Gait instability Right wrist sprain Qualifiers: Encounter type: initial encounter Qualified Code(s): S63.501A - Unspecified sprain of right wrist, initial encounter Condition: Good Instructions: Falls Prevent Exercise, Falls Prevent Stay Active, [facility] Prescriptions: predniSONE [Deltasone] 40 mg PO DAILY 5 Days #10 tablet HYDROcod/ACETAM 5/325 [[place] 5/325] 1 - 2 tablet PO Q6H PRN #14 tablet PRN Reason: Pain Diclofenac Sodium 1% Gel [Voltaren Gel] 2 gm TOP QID #50 gm Comments: Use a cool compress on your right wrist pain and swelling, and I have also given you a wrist splint. If the splint is uncomfortable, you can take it off. I have prescribed the prednisone that has worked for you for pain in the past. This is typically not a pain regimen but it has been helpful for you in the past. I have also prescribed a topical gel that can help with pain and as needed hydrocodone. Follow-up with your primary doctor regarding your leg weakness and recurrent falls. I think you benefit from physical therapy brittai radha having a walker at home to use if needed. Please get up carefully, sit at the side of bed, and stand yourself before ambulating, particularly at nighttime or after taking Xanax or other medicine. I am prescribing a short course of narcotic pain medication for you. These are potentially dangerous and addictive medications that should be used carefully. These medications may constipate you. Take an ccgt-wgn-leolvwg stool softener (docusate) twice daily with plenty of water while taking these medications. If you go 24 hours without a bowel movement, take jvln-dbu-cucxary miralax, per package instructions. Do not drink or drive while taking these medications. If you received narcotic or sedating medications while in the emergency department, do not drive for 24 hours. Store this medication in a safe, secure place and out of reach of children. It is a violation of federal law to give or sell this medication to another person or to use in a manner other than prescribed. The ED will not refill narcotic prescriptions, including prescriptions lost or stolen. To dispose of unwanted medications: 1. [facility] provides a drop box for medication in pill form only (no liquids) 8:00 am to 4:30 p.m. Monday-Monday in the lobby of the [facility], [address] [place] [address]. Empty pills into ziplock bag before disposal. Call [phone] for information. 2.[employer] is a free service available to all [facility] residents. Go to [email or web address] Note that many narcotic pain relievers also contain Tylenol/acetaminophen. Please ensure that your total dose of acetaminophen from all sources does not exceed 3 g (3000 mg) per day. Forms: PCP List
[2024-06-26] MEDS: HYDROcod/ACETAM 5/325 MG TABLET PO STA (13:08)
[2024-06-26] MEDS: ONDANSETRON ODT 4 MG TABLET TL STA (13:08)
--- NOTE | 2024-06-26 13:08 | XRAY Report ---
PROCEDURE: Wrist 3+V RT INDICATIONS: fall TECHNIQUE: 3 views of the wrist were acquired. COMPARISON: None. FINDINGS: Bones: No fractures or dislocations. Periarticular osteopenia and possible ulnar angulation at the M CP joint suggests possible inflammatory arthritis such as rheumatoid arthritis. No suspicious bony le sions. Soft tissues: No suspicious soft tissue calcifications or masses. IMPRESSION: Suspect possible rheumatoid arthritis. No acute bony abnormality. Reviewed by: Regino Howard MD on 06/26/2024 1:07 PM PDT Approved by: Regino Howard MD on 06/26/2024 1:07 PM PDT Station ID: [id number]
[2024-06-26 13:59] VITALS: BP 164/83
== END 2024-06-26 14:01 | disposition home or self-care (01) ==
LOC: ED 12:26
DX: S63.501A Unspecified sprain of right wrist, initial encounter (principal); W18.30XA Fall on same level, unspecified, initial encounter; Y92.009 Unspecified place in unspecified non-institutional (private) residence as the place of occurrence of the external cause; R26.89 Other abnormalities of gait and mobility; I10 Essential (primary) hypertension
CPT/HCPCS: 73110; 99283; 99284; A9270; Q0162; 80053; 82077; 83690; 85025